=== PATIENT | male | born 1955 | race Caucasian/White ===

== ENCOUNTER 2016-12-18 20:22 | Emergency (ER) ==
[2016-12-18] MEDS ORDERED: SODIUM CHLORIDE 1,000 ML IV STA (20:27)
[2016-12-18 20:31] VITALS: BP 136/86; TEMP 97.6; BMI 28.2
[2016-12-18 20:32] LABS: BASOPHILS # (AUTO) 0.1 K/uL (0-0.2); BASOPHILS % (AUTO) 1.1 % (0.0-3.0); EOSINOPHILS # (AUTO) 0.1 K/ul (0.0-0.7); EOSINOPHILS % (AUTO) 1.6 % (0.0-7.0); HEMATOCRIT 39.9 % (42.0-52.0); HEMOGLOBIN 14.4 g/dl (14.0-18.0); IMMATURE GRANULOCYTE % (AUTO) 0.4 % (0.0-5.0); LYMPHOCYTES # (AUTO) 2.6 K/uL (0.60-3.4); LYMPHOCYTES % (AUTO) 31.3 (10.0-50.0); MEAN CORPUSCULAR HEMOGLOBIN 34.4 pg (27.0-31.0); MEAN CORPUSCULAR HGB CONC 36.1 (31.8-35.4); MEAN CORPUSCULAR VOLUME 95.5 fl (80.0-94.0); MONOCYTES # (AUTO) 0.9 K/uL (0.4-2.0); MONOCYTES % (AUTO) 10.5 (0-10); NEUTROPHILS # (AUTO) 4.5 K/ul (2.0-6.9); NEUTROPHILS % (AUTO) 55.1; PLATELET COUNT 269 10^3/uL (140-440); RED BLOOD COUNT 4.18 10^6/ul (4.70-6.10); WHITE BLOOD COUNT 8.18 K/ul (4.2-10.2)
[2016-12-18] MEDS ORDERED: MORPHINE 2 MG/ML SYRINGE IVP STA (20:41)
[2016-12-18] MEDS ORDERED: ZOFRAN 4 MG/2 ML IVP STA (20:42)
--- NOTE | 2016-12-18 20:54 | CT ---
EXAM: CT of the chest without contrast History: Right-sided chest pain. Technique: Multiplanar CT images through the thorax were obtained without the administration of IV c ontrast Findings: Heart size is within normal limits. Coronary artery calcifications. Great vessels are un remarkable. No pathologically enlarged thoracic lymph nodes. Calcified hilar and mediastinal lymph nodes. No consolidated pneumonia. No pleural fluid and no pneumothorax. No suspicious lung masses o r lung nodules. Within the visualized upper abdomen, status post cholecystectomy. The liver is fatty. Calcified gra nulomas within the spleen. 2 mm left renal calculus. Chronic compression fracture at L1 with about 50% loss of vertebral body height. Old healed right cla vicular fracture. A tiny hiatal hernia. Large amount of fluid and debris is seen opacifying a long segment of esophagu s. Underlying esophageal wall thickening is a possibility. Impression: 1. Abnormal esophagus filled with fluid and debris and there may be underlying esophageal wall thick ening. Recommend further evaluation with upper endoscopy. 2. Tiny hiatal hernia. 3. No acute intrathoracic process. 4. Hepatic steatosis. 5. Nonobstructing left nephrolithiasis. 6. Coronary artery disease
[2016-12-18 21:09] LABS: ALBUMIN 3.9 g/dL (3.4-5.0); ALBUMIN/GLOBULIN RATIO 1.08; BILIRUBIN,TOTAL 0.57 mg/dL (0.00-1.20); BUN/CREATININE RATIO 5.68; CREATINE KINASE MB 4.4 ng/ml (0.0-3.6); CREATININE 0.88 mg/dL (0.60-1.10); TOTAL PROTEIN 7.5 g/dL (5.8-8.1); TROPONIN I 0.012 ng/ml (0.0000-0.4000)
--- NOTE | 2016-12-18 21:20 | ED.PDOC ---
General ED Provider: Dr. JANIE MARIEE-ER Chief Complaint: Shortness of Air Stated Complaint: he was eating and got choked--has right sided chest pain--"i think my lung is collapsed again" Time Seen by Physician: 21:18 Mode of Arrival: Walk-In Information Source: Patient Exam Limitations: No limitations Primary Care Provider: JANIE MARIEE Nursing and Triage Documentation Reviewed and Agree: Yes Cardiovascular Complaint Exam - Chest Pain Complaint/Exam Onset: Gradual Duration: several min Symptoms Are: Still present Timing: Constant Initial Severity: Mild Current Severity: Moderate Location: Reports: Right anterior Character: Reports: Dull, Aching, Tightness, Heaviness, Pressure Aggravating: Reports: None Alleviating: Reports: None Associated Signs and Symptoms: Reports: Cough Related Surgical History: Reports: None History of Healthcare-Acquired Pneumonia: Reports: No AMI/ACS Risk Factors: Reports: Hypertension TAD Risk Factors: Reports: Hypertension Pulmonary Embolism Risk Factors: Reports: None Prior Care for this Complaint: No Recent Stress Test: No Recent Echo/LV Function: No JVD Present: No Subcutaneous Emphysema Present: No Diminshed Breath Sounds: No Reproducible Chest Wall Pain: No Bilateral Pulses Present: Yes Unequal Pulses Noted: No Billet Inspector Consulted: No Differential Diagnoses: Acute NE, ACS, Chest Wall Pain, GI Diseasae, Pulmonary Embolism Quality Indicators For Acute NE or Cardiac Chest Pain: EKG in 10min. Quality Indicator For Non-Traumatic Chest Pain/Syncope: EKG Performed Patient Advised to Stop Smoking: No Review of Systems - Review Of Systems Constitutional: Reports: No symptoms Eyes: Reports: No symptoms Ears, Nose, Mouth, Throat: Reports: No symptoms Respiratory: Reports: Cough Cardiac: Reports: Chest pain GI: Reports: No symptoms : Reports: No symptoms Musculoskeletal: Reports: No symptoms Skin: Reports: No symptoms Neurological: Reports: No symptoms Endocrine: Reports: No symptoms Hematologic/Lymphatic: Reports: No symptoms All Other Systems: Reviewed and Negative Past Medical History - Past Medical History Previously Healthy: No Endocrine: Reports: Unknown Cardiovascular: Reports: Hypertension Respiratory: Reports: Other Hematological: Reports: Unknown Gastrointestinal: Reports: Other Genitourinary: Reports: Other Neuro/Psych: Reports: Other Musculoskeletal: Reports: Unknown Cancer: Reports: Unknown - Surgical History General Surgical History: Reports: Unknown - Family History Family History: Reports: Unknown - Social History Smoking Status: Never smoker Hx Substance Use: No Alcohol Screening: Heavy Lives: With family - Immunizations Tetanus Shot up to Date: Yes Physical Exam - Physical Exam Appearance: Well-appearing, No pain distress, Well-nourished Pain Distress: Moderate Eyes: DC, EOMI, Conjunctiva clear ENT: Ears normal, Nose normal, Oropharynx normal Neck: Supple Respiratory: Airway patent, Breath sounds clear, Breath sounds equal, Respirations nonlabored Cardiovascular: RRR, Pulses normal, No rub, No murmur GI/: Soft Musculoskeletal: Normal strength Skin: Warm Neurological: Sensation intact, Motor intact, Reflexes intact, Cranial nerves intact, Alert, Oriented Psychiatric: Affect appropriate, Mood appropriate, Anxious Interpretation - Radiology Interpretation Radiology Interpretation By: Radiologist Radiology Results: Negative Exam Interpreted: CT Scan - EKG Interpretation Time of EKG #1: 21:21 Rate: Normal Rhythm: Sinus Ectopy: None [place]: NL ST Segment: Normal Critical Care Note - Critical Care Note Total Time (mins): 20 Course - Course Hematology/Chemistry: 12/18/16 20:30 12/18/16 20:30 Orders, Labs, Meds: Lab Review 12/18/16 12/18/16 12/18/16 20:30 20:30 20:30 WBC 8.18 RBC 4.18 L Hgb 14.4 Hct 39.9 L MCV 95.5 H MCH 34.4 H MCHC 36.1 H RDW Coeff of [place] 13.2 Plt Count 269 Immature Gran % (Auto) 0.4 Neut % (Auto) 55.1 Lymph % (Auto) 31.3 [place] % (Auto) 10.5 H Eos % (Auto) 1.6 Baso % (Auto) 1.1 Immature Gran # (Auto) 0.0 Neut # 4.5 Lymph # 2.6 [place] # 0.9 Eos # 0.1 Baso # 0.1 D-Dimer (Manual) 1854.65 Sodium 147 H Potassium 3.0 L Chloride 107 Carbon Dioxide 25 Anion Gap 18.0 BUN 5 L Creatinine 0.88 Estimated GFR (MDRD) 88.00 BUN/Creatinine Ratio 5.68 Glucose 117 H Calcium 9.0 Total Bilirubin 0.57 AST 53 H ALT 32 Alkaline Phosphatase 78 Total Creatine Kinase 392 CK-MB (CK-2) 4.4 H CK-MB (CK-2) % 1.65147 Troponin I 0.0120 Total Protein 7.5 Albumin 3.9 Globulin 3.6 Albumin/Globulin Ratio 1.08 Plasma/Serum Alcohol 249.1 H Orders Category Date Time Status EKG-(ED ONLY) Stat CARDIO 12/18/16 20:26 Completed NPO REMINDER: IMAGING ONCE CARE 12/18/16 21:23 Active IV [ED IV/MEDIPORT/POWERPORT] .ONCE EMERGENCY 12/18/16 20:26 Active CBC W/ AUTO DIFF Stat LAB 12/18/16 20:30 Completed COMPREHENSIVE METABOLIC PANEL Stat LAB 12/18/16 20:30 Completed CREATINE KINASE Stat LAB 12/18/16 20:30 Completed D-DIMER Stat LAB 12/18/16 20:30 Completed ETOH LEVEL [BLOOD ALCOHOL] Stat LAB 12/18/16 20:30 Completed TROPONIN I Stat LAB 12/18/16 20:30 Completed URINALYSIS C & S IF INDICATED Stat LAB 12/18/16 20:26 Uncollected 0.9 % Sodium Chloride [Saline Flush] MEDS 12/18/16 20:26 Ordered 1 syr IVF PRN PRN Morphine Sulfate [Morphine 2 mg/ml Syringe] MEDS 12/18/16 20:41 Discontinued 2 mg IVP ONCE STA Ondansetron HCl/Pf [Zofran 4 mg/2 ml] MEDS 12/18/16 20:42 Discontinued 4 mg IVP ONCE STA Sodium Chloride 0.9% [Sodium Chloride] 1,000 ml MEDS 12/18/16 20:27 Active IV 100 mls/hr CT CHEST PE PROTOCOL Stat RADS 12/18/16 21:[address] CHEST W/O CONTRAST Stat RADS 12/18/16 20:26 Completed Medications Generic Name Dose Route Start Last Admin Trade Name Freq PRN Reason Stop Dose Admin Sodium Chloride 1,000 mls @ 100 mls/hr 12/18/16 20:27 12/18/16 21:17 Sodium Chloride IV 12/19/16 06:26 100 mls/hr .Q10H STA Administration Sodium Chloride 1 syr 12/18/16 20:26 12/18/16 21:17 Saline Flush IVF 1 syr PRN PRN Administration To flush IV Discontinued Medications Generic Name Dose Route Start Last Admin Trade Name Freq PRN Reason Stop Dose Admin Morphine Sulfate 2 mg 12/18/16 20:41 12/18/16 21:17 Morphine 2 Mg/Ml Syringe IVP 12/18/16 20:42 2 mg ONCE STA Administration Ondansetron HCl 4 mg 12/18/16 20:42 12/18/16 21:17 Zofran 4 Mg/2 Ml IVP 12/18/16 20:43 4 mg ONCE STA Administration Vital Signs: Temp Pulse Resp BP Pulse Ox 12/18/16 20:54 79 21 100 12/18/16 20:24 97.6 F 80 20 136/86 99 TROY Risk Score TROY Risk Score: Risk Score Odds of by 30D 0 0.1 (0.1-0.2) 1 0.3 (0.2-0.3) 2 0.4 (0.3-0.5) 3 0.7 (0.6-0.9) 4 1.2 (1.0-1.5) 5 2.2 (1.9-2.6) 6 3.0 (2.5-3.6) 7 4.8 (3.8-6.1) Departure - Departure Time of Disposition: 22:19 Disposition: TSF SHORT-TRM HOSP Discharge Problem: Chest pain Qualifiers: Chest pain type: unspecified Qualified Code(s): R07.9 - Chest pain, unspecified Instructions: Chest Pain (ED) Condition: Good Pt referred to PMD for follow-up: Yes Transfer Form Completed: Yes Disposition Discussed With: Patient, Family
--- NOTE | 2016-12-18 22:08 | CT ---
EXAM: CTA chest for Pulminary Embolism. HISTORY: Right-sided chest pain, elevated D-dimer TECHNIQUE: CTA of the chest was performed from the lung apices to the upper abdomen after 100 ml of Omnipaque IV contrast was administered using PE protocol. 3-D imaging was also provided. Axial scans acquired at 3 mm slice thicknesses. MPR coronal and sagittal sequence as well as 3-D VR T rotational sequence completed FINDINGS: There is no filling defect in the pulmonary arteries to the level of the subsegmental pulm onary arteries. The heart is normal without signs of ventricular strain. There is some ectasia asce nding aorta 3.79 cm compared descending aorta 2.9 cm. There is no pericardial or pleural effusion. No mediastinal adenopathy. There is no lobar consolidations/pneumonia. There is some air within the esophagus and some debris soft tissue attenuation in the distal esophagus. Correlate clinically reg arding GERD. Adrenal glands normal. Surgical clips gallbladder fossa. No biliary ductal dilatation. IMPRESSION: 1. No evidence of pulmonary embolism is seen. 2. Ectasia of the ascending aorta 3.79 cm. 3. No pulmonary consolidation or pneumonia seen. 4. Coronary artery disease/atherosclerotic calcification 5. Air and some debris within the esophagus, correlate clinically regarding GERD.
== END 2016-12-18 23:05 | disposition short-term general hospital (02) ==
LOC: ED 20:22
DX: R07.9 Chest pain, unspecified (principal); R06.02 Shortness of breath; R05 Cough; I10 Essential (primary) hypertension; Z87.19 Personal history of other diseases of the digestive system
CPT/HCPCS: 36415; 80053; 80307; 82550; 82553; 84484; 85025; 85379; 93005; 93010; 96361; 96374; 96375; 99285

== ENCOUNTER 2017-11-13 18:42 | Emergency (ER) ==
[2017-11-13 18:49] VITALS: BP 133/93; TEMP 96.4; BMI 27.1
--- NOTE | 2017-11-13 19:32 | ED.PDOC ---
General ED Provider: Dr. JANIE MARIEE-ER Chief Complaint: Multiple Trauma Stated Complaint: i got kneed in the chest Time Seen by Physician: 18:45 Mode of Arrival: Walk-In Information Source: Patient, Police Exam Limitations: No limitations Primary Care Provider: JANIE MARIEE Nursing and Triage Documentation Reviewed and Agree: Yes Does patient meet sepsis criteria?: No System Inflammatory Response Syndrome: Not Applicable Sepsis Protocol: For patient's 13 years and over: Temp is 96.8 and below OR 101 and greater Pulse >90 BPM Resp >20/minute Acutely Altered Mental Status Are patient's symptoms suggestive of a new infection, such as: -Pneumonia -Skin, Soft Tissue -Endocarditis -UTI -Bone, Joint Infection -Implantable Device -Acute Abdominal Infection -Wound Infection -Meningitis -Blood Stream Catheter Infection -Unknown Trauma/Injury Complaint Exam - Truncal Trauma Complaint/Exam Location of Pain: Reports: Right, Chest Onset: one hour Symptoms Are: Still present Onset of Pain: Reports: Immediate Initial Severity: Mild Current Severity: Moderate Mechanism: Reports: Direct blow Aggravating: Reports: Movement, Deep breathing Alleviating: Reports: Shallow breathing Associated Signs and Symptoms: Denies: Short of air, Chest pain, Cough, Hematuria, Abdominal pain, Fever, Nausea, Vomiting Immobilization Removed Post Exam: No Vertebral Tenderness Present: No Vertebral Deformity Present: No Trachial Deviation Present: No JVD Present: No Crepitus Present: No Diminished Breath Sounds: No Reproducible Pain at: right chest wall Muffled Heart Sounds Present: No Paradoxical Chest Wall Movement Present: No Abdominal Guarding Present: No Abdominal Rigidity Present: No Referred Shoulder Pain (Kehr's Sign) Present: No Skin Findings: Present: Contusion, Tenderness Differential Diagnoses: Chest Wall Contusion Review of Systems - Review Of Systems Constitutional: Reports: No symptoms Eyes: Reports: No symptoms Ears, Nose, Mouth, Throat: Reports: No symptoms Respiratory: Reports: No symptoms Cardiac: Reports: No symptoms GI: Reports: No symptoms : Reports: No symptoms Musculoskeletal: Reports: Muscle pain Skin: Reports: No symptoms Neurological: Reports: No symptoms Endocrine: Reports: No symptoms Hematologic/Lymphatic: Reports: No symptoms All Other Systems: Reviewed and Negative Past Medical History - Past Medical History Previously Healthy: No Endocrine: Reports: Unknown Cardiovascular: Reports: Hypertension Respiratory: Reports: Other Hematological: Reports: Unknown Gastrointestinal: Reports: Other Genitourinary: Reports: Other Neuro/Psych: Reports: Other Musculoskeletal: Reports: Unknown Cancer: Reports: Unknown - Surgical History General Surgical History: Reports: Unknown - Family History Family History: Reports: Unknown - Social History Smoking Status: Never smoker Hx Substance Use: No Alcohol Screening: Heavy Physical Exam - Physical Exam Appearance: Well-appearing, No pain distress, Well-nourished Eyes: DC, EOMI, Conjunctiva clear ENT: Ears normal, Nose normal, Oropharynx normal Neck: Supple Respiratory: Airway patent, Breath sounds clear, Breath sounds equal, Respirations nonlabored Cardiovascular: RRR GI/: Soft, Nontender, No masses, Bowel sounds normal, No Organomegaly Musculoskeletal: Limited ROM Skin: Warm, Dry, Normal color Neurological: Sensation intact, Motor intact, Reflexes intact, Cranial nerves intact, Alert, Oriented Psychiatric: Affect appropriate, Mood appropriate Interpretation - Radiology Interpretation Radiology Interpretation By: Radiologist Radiology Results: Positive Exam Interpreted: CT Scan - EKG Interpretation Time of EKG #1: 19:56 Rate: Tachy Rhythm: Sinus Ectopy: None [place]: NL Interpretation: sinus tachy Critical Care Note - Critical Care Note Total Time (mins): 0 Course - Course Hematology/Chemistry: 11/13/17 18:55 11/13/17 18:55 Orders, Labs, Meds: Lab Review 11/13/17 11/13/17 11/13/17 18:55 18:55 18:55 WBC 10.01 RBC 4.56 L Hgb 15.2 Hct 41.9 L MCV 91.9 MCH 33.3 H MCHC 36.3 H RDW Coeff of [place] 13.4 Plt Count 272 Immature Gran % (Auto) 0.8 Neut % (Auto) 52.0 Lymph % (Auto) 33.4 [place] % (Auto) 10.3 H Eos % (Auto) 2.1 Baso % (Auto) 1.4 Immature Gran # (Auto) 0.1 Neut # (Auto) 5.2 Lymph # (Auto) 3.3 [place] # (Auto) 1.0 Eos # (Auto) 0.2 Baso # (Auto) 0.1 Sodium 140.8 Potassium 2.42 L* Chloride 103.0 Carbon Dioxide 19.6 L Anion Gap 20.62 BUN 6.6 L Creatinine 0.89 Estimated GFR (MDRD) 86.00 BUN/Creatinine Ratio 7.41 Glucose 178.5 H Calcium 8.56 Magnesium 1.68 Total Bilirubin 1.01 AST 154.7 H ALT 55.9 H Alkaline Phosphatase 92.4 Total Creatine Kinase 282.3 H CK-MB (CK-2) 3.710 H CK-MB (CK-2) % 1.3100 Troponin I < 0.012 Total Protein 7.59 Albumin 4.19 Globulin 3.40 Albumin/Globulin Ratio 1.23 Plasma/Serum Alcohol 224.5 H Orders Category Date Time Status ADMIT PATIENT INPATIENT .TO SCU (MONITORED BED) ADMISSION 11/13/17 19:58 Active EKG-(ED ONLY) Stat CARDIO 11/13/17 18:43 Ordered EKG-(IP & OP ONLY) DAILY CARDIO 11/14/17 06:00 Ordered EKG-(IP & OP ONLY) DAILY CARDIO 11/15/17 06:00 Ordered OXYGEN Routine CARDIO 11/13/17 19:59 Ordered ACTIVITY .Up ad Nereyda CARE 11/13/17 19:58 Active INTAKE & OUTPUT Q8HR CARE 11/13/17 19:58 Active TELEMETRY MONITORING TELE CARE 11/13/17 19:58 Active VITAL SIGNS Q4HR CARE 11/13/17 19:58 Active REGULAR DIET DIETARY 11/13/17 Breakfast Ordered Commercial Hvac Service Technician [ED PARKING PATROLLER APPLIED] .ONCE EMERGENCY 11/13/17 19:28 Active IV [ED IV/MEDIPORT/POWERPORT] .ONCE EMERGENCY 11/13/17 19:28 Active CBC W/ AUTO DIFF DAILY@0600 LAB 11/14/17 06:00 Ordered CBC W/ AUTO DIFF DAILY@0600 LAB 11/15/17 06:00 Ordered CBC W/ AUTO DIFF Stat LAB 11/13/17 18:55 Completed COMPREHENSIVE METABOLIC PANEL DAILY@0600 LAB 11/14/17 06:00 Ordered COMPREHENSIVE METABOLIC PANEL DAILY@0600 LAB 11/15/17 06:00 Ordered COMPREHENSIVE METABOLIC PANEL Stat LAB 11/13/17 18:55 Completed CREATINE KINASE Stat LAB 11/13/17 18:55 Completed ETOH LEVEL [BLOOD ALCOHOL] Stat LAB 11/13/17 18:55 Completed MAGNESIUM Stat LAB 11/13/17 18:55 Completed TROPONIN I Stat LAB 11/13/17 18:55 Completed 0.9 % Sodium Chloride [Saline Flush] MEDS 11/13/17 19:28 Ordered 1 syr IVF PRN PRN Hydrocodone Bit/Acetaminophen [[place] 7.5-325] MEDS 11/13/17 20:02 Ordered 1 tab PO Q4HR PRN Ketorolac Tromethamine [Toradol] MEDS 11/13/17 20:01 Ordered 30 mg IVP Q6HR PRN Lorazepam Inj [Ativan] MEDS 11/13/17 20:00 Ordered 2 mg IVP Q4HR PRN Potassium Chloride [K-Dur] MEDS 11/13/17 20:02 Discontinued 40 meq PO ONCE STA Potassium Chloride in 0.9%NaCl [Sodium Chloride 0.9%- MEDS 11/13/17 20:00 Ordered KCl 20 Meq] 1,000 ml Folic Acid 1 mg Vitamin B-1 Inj [Thiamine] 100 mg Mvi, Adult No.1 with Vit K [Infuvite Adult] 10 ml IV 125 mls/hr Vitamin B-1 Inj [Thiamine] MEDS 11/13/17 20:00 Ordered 50 mg IVP DAILY RESUSCITATION STATUS Routine OTHERS 11/13/17 19:[address] CHEST W/O CONTRAST Stat RADS 11/13/17 18:44 Completed Medications Generic Name Dose Route Start Last Admin Trade Name Freq PRN Reason Stop Dose Admin Hydrocodone Bitart/Acetaminophen 1 tab 11/13/17 20:02 [place] 7.5-325 PO Q4HR PRN MODERATE PAIN Albuterol Sulfate 1 vial 11/14/17 00:00 Albuterol 0.042% Neb NEB RTQ6H [place] Folic Acid 1 mg/ Thiamine HCl 1,011.2 mls @ 125 mls/hr 11/13/17 20:00 100 mg/ Multivitamins/Minerals IV 10 ml/ Potassium Chloride/ .Q8H6M [place] Sodium Chloride Ketorolac Tromethamine 30 mg 11/13/17 20:01 Toradol IVP Q6HR PRN MODERATE PAIN Lorazepam 2 mg 11/13/17 20:00 Ativan IVP Q4HR PRN Alcohol Withdrawal Non-Formulary Medication 20 mg 11/14/17 09:00 Lisinopril [Lisinopril] PO DAILY [place] Ondansetron HCl 4 mg 11/13/17 20:05 Zofran 4 Mg/2 Ml IVP Q4HR PRN Nausea / Vomiting Sodium Chloride 1 syr 11/13/17 19:28 Saline Flush IVF PRN PRN To flush IV Thiamine HCl 50 mg 11/13/17 20:00 Thiamine IVP DAILY [place] Discontinued Medications Generic Name Dose Route Start Last Admin Trade Name Sam PRN Reason Stop Dose Admin Potassium Chloride 40 meq 11/13/17 20:02 K-Dur PO 11/13/17 20:03 ONCE STA i tried to convince him to stay but he would not be convinced--i told him he was at risk but decided he would not stay and was going to leave against medical advice--i did note his BA but he is alert and oriented and he is able to make the decision to leave against medical advice. Vital Signs: Temp Pulse Resp BP Pulse Ox 11/13/17 18:43 96.4 F L 109 H 20 133/93 H 95 Departure - Departure Time of Disposition: 19:56 Disposition: AMA Discharge Problem: Hypokalemia Multiple rib fractures Qualifiers: Encounter type: initial encounter Fracture type: closed Laterality: right Qualified Code(s): S22.41XA - Multiple fractures of ribs, right side, initial encounter for closed fracture Condition: Fair Pt referred to PMD for follow-up: Yes IPMP verified?: No Allergies/Adverse Reactions: Allergies No Known Allergies Allergy (Unverified 11/13/17 18:53) Home Medications: Ambulatory Orders Lisinopril 20 mg PO DAILY 11/13/17 Disposition Discussed With: Patient
--- NOTE | 2017-11-13 19:52 | CT ---
Exam: CT of the chest without contrast History: Right-sided chest wall trauma and pain Technique: [address] of the chest without intravenous contrast FINDINGS: The lung windows show no infiltrative opacities, suspicious nodules or masses. Atheroscle rotic calcification of the aorta without aneurysm. There is no pneumothorax or pleural fluid. Nondi splaced right anterolateral fifth, sixth, seventh, eighth rib fractures. No fractures are seen on th e left. Chronic L1 compression deformity. No acute abnormality of the thoracic spine. The sternum is intact. Liver steatosis measuring 16 HU incidentally noted in the upper abdomen. Impression: 1. Right-sided fifth through eighth nondisplaced rib fractures. No lung abnormalities are seen. 2. No acute findings of the chest otherwise.
[2017-11-13] MEDS ORDERED: ATIVAN IVP PRN (20:00)
[2017-11-13] MEDS ORDERED: FOLIC ACID 1 MG, THIAMINE 100 MG, INFUVITE ADULT 10 ML in SODIUM CHLORIDE 0.9%-KCL 20 M... IV SCH (20:00)
[2017-11-13] MEDS ORDERED: THIAMINE IVP SCH (20:00)
[2017-11-13] MEDS ORDERED: TORADOL IVP PRN (20:01)
[2017-11-13] MEDS ORDERED: NORCO 7.5-325 PO PRN (20:02)
[2017-11-13] MEDS ORDERED: ZOFRAN 4 MG/2 ML IVP PRN (20:05)
[2017-11-13] MEDS: K-DUR PO STA (20:12)
[2017-11-14] MEDS ORDERED: ALBUTEROL 0.042% NEB NEB SCH
[2017-11-14] MEDS ORDERED: NON-FORMULARY MEDICATION (Lisinopril [Lisinopril] 20 MG) PO SCH (09:00)
== END 2017-11-13 20:15 | disposition left against medical advice (07) ==
LOC: ED 18:42 → UNDOADMIN 20:03 → SCU 20:03 → ED 20:15
DX: S22.41XA Multiple fractures of ribs, right side, initial encounter for closed fracture (principal); E87.6 Hypokalemia; W50.0XXA Accidental hit or strike by another person, initial encounter
CPT/HCPCS: 36415; 80053; 80307; 82550; 82553; 83735; 84484; 85025; 93005; 93010; 99284

== ENCOUNTER 2018-05-08 17:55 | Outpatient (CLI) | END 2018-05-08 18:21 | disposition short-term general hospital (02) | LOC: AMBL 17:55 | PROVIDERS: ATTEND Emergency Medicine | DX: R45.851 Suicidal ideations (principal); R45.6 Violent behavior ==

== ENCOUNTER 2021-10-19 18:02 | Inpatient (IN) ==
[2021-10-19] MEDS ORDERED: TYLENOL PO PRN (19:26)
[2021-10-19] MEDS ORDERED: NITROSTAT SL PRN (19:26)
[2021-10-19] MEDS ORDERED: ATROPINE SULFATE PFS IVP PRN (19:26)
[2021-10-19 19:46] LABS: BASOPHILS # (AUTO) 0.1 K/uL (0-0.2); EOSINOPHILS # (AUTO) 0.4 K/ul (0.0-0.7); EOSINOPHILS % (AUTO) 4.7 % (0.0-7.0); HEMATOCRIT 33.9 % (42.0-52.0); HEMOGLOBIN 11.2 g/dl (14.0-18.0); IMMATURE GRANULOCYTE % (AUTO) 0.4 % (0.0-5.0); LYMPHOCYTES % (AUTO) 24.4 (10.0-50.0); MEAN CORPUSCULAR HEMOGLOBIN 29.3 pg (27.0-31.0); MEAN CORPUSCULAR VOLUME 88.7 fl (80.0-94.0); MONOCYTES % (AUTO) 12.1 (0-10); NEUTROPHILS # (AUTO) 4.7 K/ul (2.0-6.9); NEUTROPHILS % (AUTO) 57.4 % (42.2-75.2); PLATELET COUNT 276 10^3/uL (140-440); RDW COEFFICIENT OF VARIATION 14.1 % (11.6-14.8); RED BLOOD COUNT 3.82 10^6/ul (4.70-6.10)
[2021-10-19] MEDS ORDERED: BENTYL PO PRN (19:51)
[2021-10-19] MEDS ORDERED: DYAZIDE PO PRN (19:51)
[2021-10-19] MEDS ORDERED: IMODIUM PO PRN (19:51)
[2021-10-19 19:57] LABS: ALANINE AMINOTRANSFERASE 15.9 U/L (0-50); ALBUMIN 3.88 g/dL (3.5-5.0); ASPARTATE AMINO TRANSFERASE 25.7 U/L (17-59); BILIRUBIN,TOTAL 0.48 mg/dL (0.2-1.3); BLOOD UREA NITROGEN 9.9 mg/dL (9-20); CALCIUM 8.52 mg/dL (8.4-10.2); CARBON DIOXIDE 17.9 mmol/L (22-30.0); CHLORIDE 106.7 mmol/L (98-107); CREATINE KINASE 223.3 U/L (55-170); CREATININE 1.28 mg/dL (0.60-1.10); GLUCOSE 168.6 mg/dL (74-106); SODIUM 138.3 mmol/L (134.5-145); TOTAL PROTEIN 7.41 g/dL (6.3-8.2)
[2021-10-19 20:16] LABS: POTASSIUM 2.69 mmol/L (3.5-5.1); TROPONIN I < 0.012 ng/ml (0.0000-0.120)
[2021-10-19 20:22] VITALS: BMI 27.6
[2021-10-19] MEDS: PRILOSEC PO SCH (20:44)
[2021-10-19] MEDS: ULTRAM PO SCH (20:44)
[2021-10-19] MEDS: SODIUM CHLORIDE 0.9%-KCL 20 MEQ 1,000 ML IV SCH (20:51)
[2021-10-19] MEDS ORDERED: K-DUR PO SCH (21:00)
[2021-10-19] MEDS ORDERED: NEURONTIN PO SCH (21:00)
[2021-10-19] MEDS ORDERED: COREG PO SCH (21:00)
--- NOTE | 2021-10-19 21:12 | DI ---
EXAM: CHEST FRONTAL AND LATERAL VIEWS HISTORY: Acute hypokalemia, generalized weakness and cough COMPARISON: 08/28/2020 FINDINGS: Heart size upper limit normal. Ectasia of the thoracic aorta with atherosclerotic disease . There is diffuse, chronic appearing interstitial accentuation. No acute infiltrates are seen. No vascular congestion. There is no consolidation, visible pleural fluid or pneumothorax. Bones revea l no acute abnormality. IMPRESSION: No acute cardiopulmonary process.
[2021-10-20 04:16] LABS: BASOPHILS # (AUTO) 0.1 K/uL (0-0.2); EOSINOPHILS # (AUTO) 0.4 K/ul (0.0-0.7); EOSINOPHILS % (AUTO) 5.1 % (0.0-7.0); HEMATOCRIT 33.9 % (42.0-52.0); HEMOGLOBIN 10.8 g/dl (14.0-18.0); IMMATURE GRANULOCYTE % (AUTO) 0.4 % (0.0-5.0); LYMPHOCYTES # (AUTO) 2.1 K/uL (0.60-3.4); LYMPHOCYTES % (AUTO) 26.6 (10.0-50.0); MEAN CORPUSCULAR HEMOGLOBIN 29.5 pg (27.0-31.0); MEAN CORPUSCULAR HGB CONC 31.9 (31.8-35.4); MEAN CORPUSCULAR VOLUME 92.6 fl (80.0-94.0); MONOCYTES # (AUTO) 1.1 K/uL (0.4-2.0); MONOCYTES % (AUTO) 13.3 (0-10); NEUTROPHILS # (AUTO) 4.3 K/ul (2.0-6.9); NEUTROPHILS % (AUTO) 53.6 % (42.2-75.2); PLATELET COUNT 249 10^3/uL (140-440); RDW COEFFICIENT OF VARIATION 14.3 % (11.6-14.8); RED BLOOD COUNT 3.66 10^6/ul (4.70-6.10); WHITE BLOOD COUNT 7.97 K/ul (4.2-10.2)
[2021-10-20 04:27] LABS: ALANINE AMINOTRANSFERASE 12.6 U/L (0-50); ALBUMIN 3.42 g/dL (3.5-5.0); ALKALINE PHOSPHATASE 95.7 U/L (56-119); ASPARTATE AMINO TRANSFERASE 24.4 U/L (17-59); BILIRUBIN,TOTAL 0.48 mg/dL (0.2-1.3); BLOOD UREA NITROGEN 12.3 mg/dL (9-20); CALCIUM 8.03 mg/dL (8.4-10.2); CARBON DIOXIDE 24.7 mmol/L (22-30.0); CREATINE KINASE 165.1 U/L (55-170); CREATININE 1.21 mg/dL (0.60-1.10); GLUCOSE 132.6 mg/dL (74-106); SODIUM 139.8 mmol/L (134.5-145); TOTAL PROTEIN 6.91 g/dL (6.3-8.2)
[2021-10-20 04:40] LABS: TROPONIN I < 0.012 ng/ml (0.0000-0.120)
[2021-10-20] MEDS ORDERED: GLUCOPHAGE PO SCH (09:00)
[2021-10-20] MEDS: K-DUR PO SCH ×4 (09:17→21:18)
[2021-10-20] MEDS: COREG PO SCH ×2 (09:17→18:15)
[2021-10-20] MEDS: ULTRAM PO SCH ×2 (09:17→21:18)
[2021-10-20] MEDS: FERROUS SULFATE PO SCH (09:17)
[2021-10-20] MEDS: SODIUM CHLORIDE 0.9%-KCL 20 MEQ 1,000 ML IV SCH ×2 (09:21→22:05)
--- NOTE | 2021-10-20 09:30 | HP ---
DATE OF SERVICE: 10/19/21 REASON FOR HOSPITALIZATION/HISTORY OF PRESENT ILLNESS: Potassium 2.8 today, feeling weak. PAST MEDICAL HISTORY: Crohn's Hypertension CAD Dyslipidemia Anemia Hypokalemia Osteoarthritis, hips DJD spine Hypertension Neuropathy Positive marijuana Leg edema Hyperglycemia GERD See office note PAST SURGICAL HISTORY: Stomach surgery REVIEW OF SYSTEMS: CONSTITUTIONAL: No fever, Fatigue. HEENT: No sinus drainage, no sore throat. RESPIRATORY: No cough, no congestion. CARDIOVASCULAR: No atypical chest pain for coronary artery disease. No angina, CHF symptoms, palpitations or shortness of breath. GASTROINTESTINAL: No melena or abdominal pain. No GERD. GENITOURINARY: No hematuria, no prostatism, no polyuria. TRAIN ELECTRONIC TECHNICIAN: No blackout, no dizziness, no headache, no double vision. MUSCULOSKELETAL: No osteoarthritis pain, no joint swelling. ENDOCRINE: No weight loss, no weight gain. SKIN: Not dry, no rash. PSYCHIATRIC: Not anxious, no depression, no suicidal thoughts, no homicidal thoughts. SOCIAL HISTORY: Marital Status: . Alcohol Usage: Yes; vodka daily. Tobacco Usage: No. Drug usage history:Smoker, pot since . FAMILY HISTORY: Father kidney failure Mother breast cancer Brother one liver, one alive healthy Sister one healthy MEDICATIONS: Imodium 2mg 1-2 PRN Gabapentin 300mg HS Iron Q daily (over the counter) K-tab 20meq daily Tramadol 50mg BID Omeprazole 20mg HS Dyazide three times weekly PRN Bentyl 10mg TID PRN Nitroglycerin PRN Coreg 12.5mg PO BID Baby Aspirin 81mg PO Metformin 250mg daily ALLERGIES: No known allergies PHYSICAL EXAMINATION: V/S: pulse 97, blood pressure 144/80, temperature 98.2, oxygen saturation 97%. GENERAL APPEARANCE: Oriented times three. HEENT: Normal. NECK: No JVP, no bruits. RESPIRATORY: Decreased breath sounds. CARDIOVASCULAR: S1, S2, no S3, no murmur. No cyanosis, clubbing. No ascites. GI/ABDOMEN: No tenderness. Bowel sounds are active. EXTREMITIES: edema, pulses +1, equal. TRAIN ELECTRONIC TECHNICIAN: Deep tendon reflexes, sensory, motor and gait all normal. RECTAL: 2019 /PELVIC/PROSTATE:6/21 (0.8) . ASSESSMENT: 1. Acute hypokalemia 2. Generalized weakness 3. Dyslipidemia 4. Anemia 5. History of hypokalemia 6. Left femoral head-possible necrosis 7. Osteoarthritis hips 8. DJD spine, lumbar 9. Right incomplete reducible inguinal hernia 10. History of pancreatitis with POLLO 08/26 11. Anemia 12. Hypertension 13. Hyperglycemia-history of diabetes mellitus type II 14. Dependent leg edema left more than right 15. Positive marijuana 16. Crohn's 17. Neuropathy 18. Dyslipidemia 19. Echo 03/29 20. GERD 21. History of alcohol abuse 22. Noncompliance with medications, lifestyle and followup. PLAN: 1. The patient to be tested in drive bert coming this afternoon 2. Routine telemetry orders 3. CBC and CMP now and daily 4. Normal saline IV plus 20meq at 83cc an hour 5. 20meq Potassium QID PO 6. Continue home medications 7. Chest x-ray 8. U/A 9. Regular diet 10. Hold Metformin TIME SPENT: More than 70 minutes. MTDD
[2021-10-20 09:41] LABS: BILIRUBIN,URINE Negative (NEGATIVE); CLARITY,URINE Slightly (CLEAR); COLOR,URINE Yellow (YELLOW); GLUCOSE, URINE (UA) Negative (NEGATIVE); KETONES,URINE Negative (NEGATIVE); LEUKOCYTE ESTERASE ,URINE 1+ (NEGATIVE); NITRITE,URINE Positive (NEGATIVE); PROTEIN,URINE Negative (NEGATIVE); URINE, BLOOD 2+ (NEGATIVE); UROBILINOGEN,URINE 0.2 (0.2)
[2021-10-20 09:50] LABS: SQUAMOUS EPITHELIAL CELL,UR NOT PRESENT (0-5)
[2021-10-20 09:52] LABS: BACTERIA,URINE 3+ (NOT PRESENT)
[2021-10-20] MEDS: NEURONTIN PO SCH (13:10)
[2021-10-20] MEDS: ROCEPHIN 1 GM/50 ML D5W 1 GM/50 ML BAG IV SCH (13:10)
[2021-10-20] MEDS: PRILOSEC PO SCH (21:18)
[2021-10-21 05:00] LABS: BASOPHILS # (AUTO) 0.1 K/uL (0-0.2); BASOPHILS % (AUTO) 0.8 % (0.0-3.0); EOSINOPHILS # (AUTO) 0.4 K/ul (0.0-0.7); EOSINOPHILS % (AUTO) 4.3 % (0.0-7.0); HEMATOCRIT 35.9 % (42.0-52.0); HEMOGLOBIN 11.7 g/dl (14.0-18.0); IMMATURE GRANULOCYTE % (AUTO) 0.3 % (0.0-5.0); LYMPHOCYTES # (AUTO) 1.7 K/uL (0.60-3.4); LYMPHOCYTES % (AUTO) 19.5 (10.0-50.0); MEAN CORPUSCULAR HEMOGLOBIN 29.4 pg (27.0-31.0); MEAN CORPUSCULAR HGB CONC 32.6 (31.8-35.4); MEAN CORPUSCULAR VOLUME 90.2 fl (80.0-94.0); MONOCYTES # (AUTO) 0.8 K/uL (0.4-2.0); MONOCYTES % (AUTO) 9.4 (0-10); NEUTROPHILS # (AUTO) 5.7 K/ul (2.0-6.9); NEUTROPHILS % (AUTO) 65.7 % (42.2-75.2); PLATELET COUNT 255 10^3/uL (140-440); RDW COEFFICIENT OF VARIATION 14.3 % (11.6-14.8); RED BLOOD COUNT 3.98 10^6/ul (4.70-6.10); WHITE BLOOD COUNT 8.62 K/ul (4.2-10.2)
[2021-10-21 05:13] LABS: ALBUMIN 3.49 g/dL (3.5-5.0); ALKALINE PHOSPHATASE 105.4 U/L (56-119); ASPARTATE AMINO TRANSFERASE 24.1 U/L (17-59); BILIRUBIN,TOTAL 0.42 mg/dL (0.2-1.3); BLOOD UREA NITROGEN 9.8 mg/dL (9-20); CALCIUM 8.56 mg/dL (8.4-10.2); CARBON DIOXIDE 21.2 mmol/L (22-30.0); CHLORIDE 111.6 mmol/L (98-107); CREATININE 1.06 mg/dL (0.60-1.10); GLUCOSE 129.7 mg/dL (74-106); POTASSIUM 3.48 mmol/L (3.5-5.1); SODIUM 140.8 mmol/L (134.5-145); TOTAL PROTEIN 7.15 g/dL (6.3-8.2)
[2021-10-21] MEDS: NEURONTIN PO SCH (09:10)
[2021-10-21] MEDS: COREG PO SCH (09:10)
[2021-10-21] MEDS: FERROUS SULFATE PO SCH (09:10)
[2021-10-21] MEDS: K-DUR PO SCH ×2 (09:11→12:37)
[2021-10-21] MEDS: ULTRAM PO SCH (09:11)
--- NOTE | 2021-10-21 09:39 | DS ---
DATE OF SERVICE: 10/21/21 FINAL DIAGNOSIS: 1. Acute hypokalemia 2. UTI, gram negative rods 3. Noncompliance with diet, lifestyle, medications and followup DISCHARGE INSTRUCTIONS: Discharge home. Continue medications as listed per nursing reconciliation. Followup appointment with Dr. Razo's office on MondayOctober 29 at 11:45am. MEDICATIONS AT DISCHARGE: Omeprazole 20mg Po bedtime Tramadol 50mg PO BID K-tab 20meq PO daily Bentyl 10mg PO TID PRN Dyazide 37.5-25mg one cap PO three times per week PRN Ferrous sulfate 325mg PO daily Imodium 2mg PO Q 4 hours PRN Gabapentin 300mg PO bedtime Metformin 250mg PO daily Coreg 12.5mg PO BID Nitroglycerin 0.4mg sublingual Q 5-15 minute PRN chest pain NEW PRESCRIPTIONS: Cefdinir 300mg PO BID DIET INSTRUCTIONS: Continue regular diet at home. ACTIVITY: Gradually resume activity as tolerated HOSPITAL COURSE: 66 year old white male who was a direct admit from the office. Labs were draw and showed Potassium 2.6. He has a history of Hypokalemia but also long history of noncompliance with medications and followup. he was agreeable for admission and placed on routine telemetry orders. He is stable from cardiac stand point. He was initiated on IV Potassium along with PO Potassium. Potassium is up to 3.48 today. Urine was positive for gram negative rods. He was started on Rocephin yesterday. He is diabetic. He is adamant about going home today. States he will not stay. We will send him home on Omnicef 300mg BID for 10 days along with Potassium 20meq daily. Should get 100meq prior to discharge today. We will followup in the office next week. TIME SPENT: More than 60 minutes. ADDENDUM: DIAGNOSIS: UTI urine grew e-coli. He was treated with antibiotics and discharged on antibiotics for UTI. [facility] SYSTEMEstela
--- NOTE | 2021-10-21 09:41 | PCM.PROG ---
Attending Provider: ATTENDING PROVIDER: Dr. CRISPIN HICKEY This patient is seen with Zenia Cifuentes, Nurse Practitioner. DATE OF SERVICE: 10/21/21 SUBJECTIVE: This 66 year old /WHITE M was hospitalized 10/19/21. Potassium is up to 3.48 today, feeling better. He is Adamant about going home. He is agreeable to stay till this evening. Will continue IV and PO Potassium today. Instruction to take Potassium at homes, states he has Potassium but doesn't take it. He has a long history of noncompliance. REVIEW OF SYSTEMS: CONSTITUTIONAL: No night sweats. No fatigue, malaise, lethargy. No fever or chills. Weakness. HEENT: Eyes: No visual changes. No eye pain. No eye discharge. ENT: No runny nose. No epistaxis. No sinus pain. No odynophagia. No congestion. RESPIRATORY: No cough, no congestion. No hemoptysis. No shortness of breath. CARDIOVASCULAR: No angina symptoms. No CHF symptoms. No atypical chest pain for CAD. No palpitations. No orthopnea.. GASTROINTESTINAL: No abdominal pain. No nausea or vomiting. No diarrhea or constipation. No hematemesis. No hematochezia. GENITOURINARY: No urgency. No frequency. No dysuria. No hematuria. No obstructive symptoms. No discharge. No pain. No significant abnormal bleeding. MUSCULOSKELETAL: No musculoskeletal pain; Joint pain. NEUROLOGICAL: Awake, alert, oriented to time, place and person. No headache. No neck pain. No syncope. No seizures. No dizziness. PSYCHIATRIC: Not anxious. No depression. No suicidal thoughts. No homicidal thoughts. SKIN: No rash. No lesions. No wounds. ENDOCRINE: No unexplained weight loss. No weight gain. HEMATOLOGIC/LYMPHATIC: No anemia. No purpura. No petechiae. No prolonged or excessive bleeding. No palpable lymph nodes. PHYSICAL EXAMINATION: GENERAL: The patient is awake, alert and oriented, lying in bed in no distress. VITAL SIGNS: Temperature 97.7 F, Pulse 60, Respiratory Rate 16, BP 148/81, Pulse Ox 94% HEENT: Head normocephalic, atraumatic. Eyes: Extraocular muscles are intact. Pupils are equal, round and reactive to light and accommodation. Ears: No lesions. Nose appeared normal. Throat: No exudate or erythema. NECK: Supple. No JVD, no carotid bruit. No lymphadenopathy or thyromegaly. LUNGS: Diminished breath sounds. Clear to auscultation. Percussion note normal. Chest symmetrical. HEART: S1, S2, no S3. No murmurs. No cyanosis or clubbing. No ascites. Pulses: Dorsalis pedis and posterior tibial pulses +1 to +2 both sides. ABDOMEN: Soft. Non-tender. Bowel sounds active. No CVA tenderness. No mass felt. EXTREMITIES: Left trace pedal edema. Full range of motion of all extremities, equal. NEUROLOGIC: No focal deficit. Cranial nerves II through XII are grossly intact. No headache. No double vision. SKIN: Not dry. Intact. Turgor-normal. LYMPHATIC: No palpable lymph nodes/no lymphedema. MUSCULOSKELETAL: Normal joints with no swelling. Muscle tone is normal. LAB REVIEW: 10/21/21 04:42 10/21/21 04:42 10/21/21 04:42: Sodium 140.8, Potassium 3.48 L, Chloride 111.6 H, Carbon Dioxide 21.2 L, Anion Gap 11.48, BUN 9.8, Creatinine 1.06, Estimated GFR (MDRD) 70.00, BUN/Creatinine Ratio 9.24, Glucose 129.7 H, Calcium 8.56, Total Bilirubin 0.42, AST 24.1, ALT 14.0, Alkaline Phosphatase 105.4, Total Protein 7.15, Albumin 3.49 L, Globulin 3.66, Albumin/Globulin Ratio 0.95 10/21/21 04:42: WBC 8.62, RBC 3.98 L, Hgb 11.7 L, Hct 35.9 L, MCV 90.2, MCH 29.4, MCHC 32.6, RDW Coeff of Cuauhtemoc 14.3, Plt Count 255, Immature Gran % (Auto) 0.3, Neut % (Auto) 65.7, Lymph % (Auto) 19.5, Dickson % (Auto) 9.4, Eos % (Auto) 4.3, Baso % (Auto) 0.8, Neut # (Auto) 5.7, Lymph # (Auto) 1.7, Dickson # (Auto) 0.8, Eos # (Auto) 0.4, Baso # (Auto) 0.1, Immature Gran # (Auto) 0.0 10/20/21 09:28: Urine Color Yellow, Urine Clarity Slightly, Urine pH 6.0, Ur Specific Holland 1.015, Urine Protein Negative, Urine Glucose (UA) Negative, Urine Ketones Negative, Urine Blood 2+ H, Urine Nitrite Positive H, Urine Bilirubin Negative, Urine Urobilinogen 0.2, Ur Leukocyte Esterase 1+ H, Urine Microscopic RBC 5-10, Urine Microscopic WBC 5-10, Ur Squamous Epith Cells Not present, Urine Bacteria 3+ ASSESSMENT: Please see below. 1. Acute hypokalemia 2. UTI, gram negative rods 3. Noncompliance with diet, lifestyle, medications and followup PLAN: 1. 2D echo before discharge 2. Discharge home this afternoon 3. PO Potassium 20meq 4. Omnicef 300mg BID for 10 days 5. Discussed importance of taking medications as prescribed. Plan and coordination of the patient's care discussed in the presence of Tube Cleaning Operator and nurse. SCRIBED BY: Megan PACKist scribed while in presence of service performed by Dr. Hickey/Zenia Cifuentes APRN on 10/21/21 ([id number])
[2021-10-21] MEDS: SODIUM CHLORIDE 0.9%-KCL 20 MEQ 1,000 ML IV SCH (09:58)
[2021-10-21] MEDS: ROCEPHIN 1 GM/50 ML D5W 1 GM/50 ML BAG IV SCH (09:58)
[2021-10-21 15:00] VITALS: BP 154/83; TEMP 97.5
[2021-10-21] MEDS ORDERED: K-DUR PO ONE (16:00)
--- NOTE | 2021-10-22 09:36 | PN ---
DATE OF SERVICE: 10/20/21 SUBJECTIVE: 66 year old white male hospitalized with hypokalemia. The patient's Potassium was 2.8 with generalized weakness. The patient says that he is feeling a lot better, still kind of weak. REVIEW OF SYSTEMS: CONSTITUTIONAL: No night sweats. No fatigue, malaise, lethargy. No fever or chills. HEENT: Eyes: No visual changes. No eye pain. No eye discharge. ENT: No runny nose. No epistaxis. No sinus pain. No sore throat. No odynophagia. No congestion. RESPIRATORY: No cough, no congestion. No hemoptysis. No shortness of breath. CARDIOVASCULAR: No angina symptoms. No CHF symptoms. No atypical chest pain for CAD. No palpitations. No PND. No orthopnea. GASTROINTESTINAL: No abdominal pain. No nausea or vomiting. No diarrhea or constipation. No hematemesis. No hematochezia. GENITOURINARY: No urgency. No frequency. No dysuria. No hematuria. No obstructive symptoms. No discharge. No pain. No significant abnormal bleeding. MUSCULOSKELETAL: No musculoskeletal pain; no joint swelling. NEUROLOGICAL: No headache. No neck pain. No syncope. No seizures. No dizziness. PSYCHIATRIC: Not anxious. No depression. No suicidal thoughts. No homicidal thoughts. SKIN: No rash. No lesions. No wounds. ENDOCRINE: No unexplained weight loss. No weight gain. HEMATOLOGIC/LYMPHATIC: No anemia. No purpura. No petechiae. No prolonged or excessive bleeding. No palpable lymph nodes. PHYSICAL EXAMINATION: VITAL SIGNS: Temperature 96.7, pulse 53, respiratory rate 16, blood pressure 137/79 and pulse ox 100% on room air. HEENT: Head normocephalic, atraumatic. Eyes: Extraocular muscles are intact. Pupils are equal, round and reactive to light and accommodation. Ears: No lesions. Nose appeared normal. Throat: No exudate or erythema. NECK: Supple. No JVD, no carotid bruit. No lymphadenopathy or thyromegaly. LUNGS: Decreased breath sounds but clear to auscultation. Percussion note normal. Chest symmetrical. HEART: S1, S2, no S3. No murmurs. No cyanosis or clubbing. No ascites. Pulses: Dorsalis pedis and posterior tibial pulses +1 to +2 bilaterally. ABDOMEN: Soft. Nontender. Bowel sounds active. No CVA tenderness. No mass felt. EXTREMITIES: No edema. Full range of motion of all extremities, equal. NEUROLOGIC: No focal deficit. Cranial nerves II through XII are grossly intact. No headache. No double vision. SKIN: Not dry. Intact. Turgor - normal. LYMPHATIC: No palpable lymph nodes/no lymphedema. MUSCULOSKELETAL: Normal joints with no swelling. Muscle tone is normal. LABS: Hgb 10.8, hct 33, WBC 7,900 normal differential, creatinine 1.2, BUN 12, potassium 2.69 and glucose 132. ASSESSMENT: 1. Hypokalemia seems to be resolving 2. Abnormal U/A with UTI going to be treated with Rocephin. Cultures are pending 3. Dehydration 4. Chronic anemia 5. Diabetes Mellitus 6. Hypertension PLAN: 1. Continue to treat patient with Potassium supplements 2. Rocephin 3. Echocardiogram to evaluate vascular status and LV function with abnormal EKG 4. The patient is noncompliant of all aspects of medical care. 5. Strongly advised to take his medication on regular basis 6. All the labs discussed with the patient. TIME SPENT: More than 30 minutes. Plan and coordination of the patient's care discussed in the presence of nurse. JUAN
--- NOTE | 2021-10-22 13:50 | ECHO2D ---
Date of Exam: 10/21/2021 Ordering Physician: DR. CRISPIN HICKEY Room #: 109 Reason for Echo: SOB, CAD M-Mode Normal Adult Results LV Dimensions Normal Adult Results AoV Opening excursions >1.6 >1.6 LVEDD-base- 3.5-5.8 5.3 Ao root dimensions 2.0-3.7 4.0 LVESD-base- 3.1-4.6 L. Atrium dimensions 1.9-3.8 4.7 Post. Wall thickness 0.8-1.1 1.3 IV septum (thickness) 0.7-1.2 1.4 Post. Wall excursion 0.72-1.3 NORMAL Septal motion NORMAL Systolic motion R. Ventricular cavity 1.5-2.0 NORMAL LVEF 60% 59% Paradoxical septal wall motion NORMAL 2-D : ENLARGED LEFT ATRIAL CAVITY--DILATED AORTIC ROOT--NORMAL LEFT VENTRICLE SIZE, NORMAL LEFT VENTRICLE CONTRACTILITY--NORMAL VALVES--NO EFFUSION, NO THROMBUS M-MODE: MV: NORMAL AV: NORMAL TV: NORMAL PV: CHAMBER SIZE: DILATED AORTIC ROOT/ ENLARGED LEFT ATRIAL CAVITY WALL MOTION: NORMAL PERICARDIUM: NORMAL INTERPRETATION: 1. LEFT VENTRICLE HYPERTROPHY WITH ENLARGED LEFT ATRIAL CAVITY 2. DILATED AORTIC ROOT 3. NORMAL VALVES 4. NORMAL LEFT VENTRICLE CONTRACTILITY MTDD
--- NOTE | 2021-10-26 10:02 | PN ---
DATE OF SERVICE: 10/21/21 SUBJECTIVE: 66 year old white male hospitalized with hypokalemia. His condition has improved. His hypokalemia has resolved. His UTI seems to be under control. He is going to be discharged home. His echo findings, LVH with enlarged LA cavity, ejection fraction is normal. The patient was seen and examined with the Nurse Practitioner. ADDENDUM: DIAGNOSIS: UTI urine grew e-coli. He was treated with antibiotics and discharged on antibiotics for UTI. TIME SPENT: More than 30 minutes. Plan and coordination of the patient's care discussed in the presence of nurse. JUAN
== END 2021-10-21 16:14 | disposition home or self-care (01) | DRG 640 ==
LOC: MEDSURG A 18:02
PROVIDERS: ADMIT Internal Medicine; ATTEND Internal Medicine

== ENCOUNTER 2023-11-30 19:49 | Observation (INO) ==
--- NOTE | 2023-11-30 19:57 | ED.PDOC ---
General ED Provider: Dr. BRENDA IBRAHIM MD Chief Complaint: Non-specific Complaint Stated Complaint: This 68 y/o male sent over from Dr. Razo's office with low potassium found on labs. he does not know how low it was, but they told him "critical" and for him to come into ER immediately, he is a bit weak with some muscle spasms, and his heart rate is notably high. Time Seen by Provider: 11/30/23 20:40 Mode of Arrival: Walk-In Information Source: Patient Exam Limitations: No limitations Primary Care Provider: CRISPIN RAZO MD Nursing and Triage Documentation Reviewed and Agree: Yes Does Patient Take Opioids?: No Is Patient Opioid Naive?: No What is Opioid Naive?: *Opioid Naive implies the patient is not already taking opioids or not chronically receiving opioids on a daily basis. *PRN dosing is not "usually" associated with tolerance. *Patients are at higher risk of over-sedation and aspiration. Is Patient Opioid Tolerant?: No What is Opioid Tolerant?: *Opioid Tolerance implies less than the expected response to an opioid. *Acquired tolerance is defined by the patient taking 60mg of oral morphine daily (or equianalgesic dose of another opioid) for 1 week or more. *Often associated with chronic pain. *May take more than usual dose to achieve desired pain control. Review of Systems Review Of Systems Constitutional: Reports No symptoms Eyes: Reports No symptoms Ears, Nose, Mouth, Throat: Reports No symptoms Respiratory: Reports No symptoms Cardiac: Reports No symptoms GI: Reports No symptoms : Reports No symptoms Musculoskeletal: Reports Muscle pain Skin: Reports No symptoms Neurological: Reports No symptoms Endocrine: Reports No symptoms Hematologic/Lymphatic: Reports No symptoms All Other Systems: Reviewed and Negative [facility] Medical History Left shoulder pain has had prior surgery by Dr. Mccallum M25.512 - Pain in left shoulder (ICD-10) Pancreatitis with POLLO 08/26 K85.90 - Acute pancreatitis without necrosis or infection, unspecified (ICD- 10) Degenerative joint disease (DJD) of lumbar spine M47.816 - Spondylosis without myelopathy or radiculopathy, lumbar region (ICD-10) DJD (degenerative joint disease) of thoracic spine M47.814 - Spondylosis without myelopathy or radiculopathy, thoracic region (ICD-10) Hx of sepsis Z86.19 - Personal history of other infectious and parasitic diseases (ICD- 10) Family History Mother Breast cancer FATHER Kidney disease Social History Smoking and tobacco status: Never smoker Alcohol intake: current Alcohol intake frequency: 3 or more drinks per day Alcohol type: beer and hard liquor Substance use type: marijuana Special jeanine needs: No Agree to transfusion: Yes Adopted: No Caregiver/support person: No Foster care: No Household members: none Housing: house Marital status: D Lives independently: Yes Daycare: no daycare Number of children: 1 service: No Current occupational status: retired Pets and animals: Yes History of recent travel: No Do you think of yourself as: straight/heterosexual Current gender identity: male Seatbelt use: sometimes Drives intoxicated or rides with intoxicated tractor driver: No Water heater temperature set < 120 degrees: Yes Working smoke detector in home: No Fire extinguisher in home: Yes Carbon monoxide detector in home: No Firearms in home: No Surgical History S/P foot surgery, left Dr. Mcgregor design technology teacher Wilberto complete reconstruction 2.5 hour surgery special shoe present Z98.890 - Other specified postprocedural states (ICD-10) Physical Exam Physical Exam Appearance: Reports Not Applicable (appears weak) Ill-appearing: Mild Pain Distress: None Eyes: Reports DC and EOMI ENT: Reports Ears normal and Nose normal Neck: Supple Respiratory: Reports Airway patent, Breath sounds clear and Breath sounds equal Cardiovascular: Reports RRR and Tachycardia GI/: Reports Soft, Nontender and No masses Musculoskeletal: Reports Normal strength and No edema Skin: Reports Warm and Dry Neurological: Reports Sensation intact, Motor intact, Reflexes intact, Cranial nerves intact, Alert and Oriented Psychiatric: Reports Affect appropriate Course Course 11/30/23 20:36 12/01/23 00:55 Orders, Labs, Meds: Lab Review 11/30/23 11/30/23 12/01/23 20:36 23:15 00:55 WBC 12.05 H RBC 3.79 L Hgb 11.1 L Hct 32.7 L MCV 86.3 MCH 29.3 MCHC 33.9 RDW Coeff of Cuauhtemoc 14.9 H Plt Count 321 Immature Gran % (Auto) 0.9 Neut % (Auto) 85.3 H Lymph % (Auto) 6.4 L Angelina % (Auto) 7.1 Eos % (Auto) 0.1 Baso % (Auto) 0.2 Neut # (Auto) 10.3 H Lymph # (Auto) 0.8 Angelina # (Auto) 0.9 Eos # (Auto) 0.0 Baso # (Auto) 0.0 Immature Gran # (Auto) 0.1 Sodium 137.0 136.4 135.6 Potassium 2.30 L* 2.63 L* 2.63 L* Chloride 104.0 105.6 107.0 Carbon Dioxide 16.0 L 14.2 L 13.1 L Anion Gap 19.30 19.23 18.13 BUN 23.0 H 22.7 H 21.9 H Creatinine 2.10 H 1.89 H 1.75 H Estimated GFR (MDRD) 31.00 36.00 39.00 BUN/Creatinine Ratio 10.95 12.01 12.51 Glucose 220.0 H 270.7 H D 309.6 H Calcium 7.50 L 7.41 L 7.10 L Magnesium 0.93 L* 0.92 L* Total Bilirubin 0.70 AST 28.0 ALT 22.0 Alkaline Phosphatase 120.0 H Total Protein 7.00 Albumin 3.60 Globulin 3.40 Albumin/Globulin Ratio 1.05 SARS CoV-2 RNA Rapid PEDRO Negative Orders Category Date Time Status BMP [BASIC METABOLIC PANEL] Stat LAB 11/30/23 23:15 Completed BMP [BASIC METABOLIC PANEL] Stat LAB 12/01/23 00:55 Completed CBC W/ AUTO DIFF Stat LAB 11/30/23 20:36 Completed CMP [COMPREHENSIVE METABOLIC PANEL] Stat LAB 11/30/23 20:36 Completed MAGNESIUM Stat LAB 11/30/23 23:15 Completed MAGNESIUM Stat LAB 12/01/23 00:55 Completed SARS COV-2 RNA RAPID PEDRO Stat LAB 11/30/23 20:36 Completed Magnesium Oxide [Mag-Ox] Meds 11/30/23 23:44 Discontinued 800 mg PO ONCE ONE Potassium Chloride [K-Dur] Meds 11/30/23 20:44 Discontinued 40 meq PO ONCE ONE Potassium Chloride in 0.9%NaCl [Sodium Chloride 0.9%- Meds 11/30/23 20:45 Discontinued KCl 40Meq] 1,000 ml IV 250 mls/hr Medications Discontinued Medications Generic Name Dose Route Start Last Admin Trade Name Freq PRN Reason Stop Dose Admin Potassium Chloride/Sodium Chloride 1,000 mls @ 250 mls/hr 11/30/23 20:45 12/01/23 01:12 Sodium Chloride 0.9%-Kcl 40meq IV 12/01/23 00:44 Infused .Q4H ONE Infusion Magnesium Oxide 800 mg 11/30/23 23:44 11/30/23 23:54 Magnesium Oxide 400 Mg Tablet PO 11/30/23 23:45 800 mg ONCE ONE Administration Potassium Chloride 40 meq 11/30/23 20:44 11/30/23 21:12 Potassium Chloride 20 Meq Tab PO 11/30/23 20:45 40 meq ONCE ONE Administration Vital Signs: Temp Pulse Resp BP Pulse Ox 11/30/23 22:25 92 16 151/95 H 100 11/30/23 21:03 92 16 152/93 H 97 11/30/23 20:04 98.1 F 103 H 16 162/106 H 97 Discharge Plan Discharge Patient Disposition: PLACED OBSERVATION Discharge Problem: Hypokalemia Prescriptions: No Action pantoprazole 40 mg tablet,delayed release (DR/EC) See Rx Instructions .ROUTE .COMPLEX Qty: 28 0RF Dose Instruction: TAKE ONE TABLET TWICE DAILY FOR 14 DAYS THEN DECREASE TO ONE TABLET DAILY Rx Instructions: TAKE ONE TABLET TWICE DAILY FOR 14 DAYS THEN DECREASE TO ONE TABLET DAILY triamterene-hydrochlorothiazid 37.5-25 mg capsule 1 cap PO 3 TIMES PER WEEK PRN (Reason: Edema) Qty: 12 3RF Rx Instructions: 3x a week prn carvedilol 6.25 mg tablet See Rx Instructions .ROUTE .COMPLEX Qty: 180 1RF Dose Instruction: TAKE ONE TABLET TWICE DAILY Rx Instructions: TAKE ONE TABLET TWICE DAILY potassium chloride 20 mEq tablet,ER particles/crystals See Rx Instructions .ROUTE .COMPLEX Qty: 90 2RF Dose Instruction: TAKE ONE TABLET THREE TIMES DAILY Rx Instructions: TAKE ONE TABLET THREE TIMES DAILY gabapentin 600 mg tablet 600 mg PO 2XD Qty: 60 2RF dicyclomine 10 mg Capsule 10 mg PO TID PRN (Reason: irritable bowel) tramadol 50 mg tablet 50 mg PO 3XD PRN (Reason: pain) acetaminophen [Tylenol] 325 mg capsule 325 mg PO ONCE PRN (Reason: fever or pain) hydrocodone-acetaminophen 5-325 mg tablet 1 tab PO BID PRN (Reason: pain) Qty: 60 0RF Did you review [place] [employer] for ALL controlled substances?: Not Applicable ED Provider: BRENDA IBRAHIM Condition: Fair Physician Progress Note: We will place an IV, start NS with Dextrose 5% and 40 mEq KCl/L at 250 cc/hr and give K-Dur 40 mEq po here now, we will get a CBC, CMP as well. potassium is up to 2.6, and Mag is critical low as well and Mag+ = 0.93 - we will continue potassium and give Mag 800 mg po here now as well. At this point, patient has been here for some time, and his potassium and magnesium are just slow to correct, so I called Daniel Castro who is on for admissions as STUDENT EDUCATION SPECIALIST, and i will keep on IV NS with dextrose and 40 meq KCl/L at 200 cc/hr, and Mag Ox 800 mg po q 6 hours, and they can check his electrolytes in AM.
[2023-11-30 20:56] LABS: BASOPHILS % (AUTO) 0.2 % (0.0-3.0); EOSINOPHILS % (AUTO) 0.1 % (0.0-7.0); HEMATOCRIT 32.7 % (42.0-52.0); HEMOGLOBIN 11.1 g/dl (14.0-18.0); IMMATURE GRANULOCYTE # (AUTO) 0.1 (0.0-1.0); IMMATURE GRANULOCYTE % (AUTO) 0.9 % (0.0-5.0); LYMPHOCYTES # (AUTO) 0.8 K/uL (0.60-3.4); LYMPHOCYTES % (AUTO) 6.4 (10.0-50.0); MEAN CORPUSCULAR HEMOGLOBIN 29.3 pg (27.0-31.0); MEAN CORPUSCULAR HGB CONC 33.9 (31.8-35.4); MEAN CORPUSCULAR VOLUME 86.3 fl (80.0-94.0); MONOCYTES # (AUTO) 0.9 K/uL (0.4-2.0); MONOCYTES % (AUTO) 7.1 (0-10); NEUTROPHILS # (AUTO) 10.3 K/ul (2.0-6.9); NEUTROPHILS % (AUTO) 85.3 % (42.2-75.2); PLATELET COUNT 321 10^3/uL (140-440); RDW COEFFICIENT OF VARIATION 14.9 % (11.6-14.8); RED BLOOD COUNT 3.79 10^6/ul (4.70-6.10); WHITE BLOOD COUNT 12.05 K/ul (4.2-10.2)
[2023-11-30] MEDS: SODIUM CHLORIDE 0.9%-KCL 40MEQ 1,000 ML IV ONE (21:12)
[2023-11-30] MEDS: K-DUR PO ONE (21:12)
[2023-11-30 21:14] LABS: SARS COV-2 RNA RAPID NAAT NEGATIVE (NEGATIVE)
[2023-11-30 21:15] LABS: ALBUMIN 3.6 g/dL (3.5-5.0); BILIRUBIN,TOTAL 0.7 mg/dL (0.2-1.3); CALCIUM 7.5 mg/dL (8.4-10.2); CREATININE 2.1 mg/dL (0.60-1.10)
[2023-11-30 21:30] LABS: POTASSIUM 2.3 mmol/L (3.5-5.1)
[2023-11-30 23:37] LABS: BLOOD UREA NITROGEN 22.7 mg/dL (9-20); CALCIUM 7.41 mg/dL (8.4-10.2); CARBON DIOXIDE 14.2 mmol/L (22-30.0); CHLORIDE 105.6 mmol/L (98-107); CREATININE 1.89 mg/dL (0.60-1.10); GLUCOSE 270.7 mg/dL (74-106); SODIUM 136.4 mmol/L (134.5-145)
[2023-11-30 23:47] LABS: MAGNESIUM 0.93 mg/dL (1.6-2.3); POTASSIUM 2.63 mmol/L (3.5-5.1)
[2023-11-30] MEDS: MAG-OX PO ONE (23:54)
[2023-12-01 01:10] LABS: BLOOD UREA NITROGEN 21.9 mg/dL (9-20); CALCIUM 7.1 mg/dL (8.4-10.2); CARBON DIOXIDE 13.1 mmol/L (22-30.0); CREATININE 1.75 mg/dL (0.60-1.10); GLUCOSE 309.6 mg/dL (74-106); SODIUM 135.6 mmol/L (134.5-145)
[2023-12-01 01:22] LABS: POTASSIUM 2.63 mmol/L (3.5-5.1)
[2023-12-01 01:23] LABS: MAGNESIUM 0.92 mg/dL (1.6-2.3)
[2023-12-01] MEDS: SODIUM CHLORIDE 1,000 ML IV SCH (02:36)
[2023-12-01] MEDS ORDERED: POTASSIUM CHLORIDE 10 MEQ/100 ML PREMIX 10 MEQ/100 ML BAG IV SCH (03:00)
[2023-12-01] MEDS: SODIUM CHLORIDE 0.9%-KCL 40MEQ 1,000 ML IV ONE (03:25)
[2023-12-01 03:49] VITALS: BMI 26.8
[2023-12-01] MEDS: MAG-OX PO SCH (05:14)
[2023-12-01 06:19] LABS: ALANINE AMINOTRANSFERASE 17.9 U/L (0-50); ALBUMIN 3.27 g/dL (3.5-5.0); ALKALINE PHOSPHATASE 103.6 U/L (56-119); BILIRUBIN,TOTAL 0.54 mg/dL (0.2-1.3); BLOOD UREA NITROGEN 19.3 mg/dL (9-20); CALCIUM 7.32 mg/dL (8.4-10.2); CARBON DIOXIDE 14.9 mmol/L (22-30.0); CHLORIDE 110.5 mmol/L (98-107); CREATININE 1.57 mg/dL (0.60-1.10); GLUCOSE 191.9 mg/dL (74-106); MAGNESIUM 1.03 mg/dL (1.6-2.3); TOTAL PROTEIN 6.35 g/dL (6.3-8.2)
[2023-12-01 06:50] LABS: SODIUM 137.8 mmol/L (134.5-145)
[2023-12-01 06:52] LABS: POTASSIUM 2.7 mmol/L (3.5-5.1)
[2023-12-01] MEDS ORDERED: TYLENOL PO PRN ×2 (08:26→14:15)
[2023-12-01] MEDS ORDERED: NORCO 5-325 PO PRN (08:27)
[2023-12-01] MEDS ORDERED: COREG PO SCH (08:30)
[2023-12-01] MEDS: MAGNESIUM SULF 2 G/50 ML BAG 2 GM/50 ML PIGGYBACK IV ONE (09:05)
[2023-12-01] MEDS: SODIUM CHLORIDE 0.9%-KCL 40MEQ 1,000 ML IV SCH (09:06)
[2023-12-01] MEDS: COREG PO SCH (10:16)
[2023-12-01] MEDS: NEURONTIN PO SCH (10:16)
[2023-12-01] MEDS: PROTONIX PO SCH (10:16)
--- NOTE | 2023-12-01 11:44 | PCM ---
Date of Service Date Seen by Provider: 12/01/23 Time Seen by Provider: 09:00 Admit Day/Time Admission Date: 12/01/23 Admission Time: 02:00 Reason for Admission Chief Complaint: HYPOKALEMIA,HYPOMAGNESEMIA Hospital Provider Hospital Provider: ESTIVEN SWARTZ, [facility] [place] Primary Care Physician Primary Care Physician: CRISPIN RAZO MD History of Present Illness History of Present Illness: 68 yo male with pmh of crohn's diwsease, htn, hld, dm2, and charcot's foot was sent to the ER by PCP for abnormal labs. He was found to have potassium of 2.1. Mag of 0.9. He was given replacement and had mild improvement to 2.6 by almost 1 am. Admitted to med/surg observation for electrolyte replacement. Patient reports he drinks 1 fifth of liquor over the course of 3 days. Denies any chest pain, palpitations, sob, dizziness, or other symptoms. Case Discussed With Case Discussed With: Patient's case was discussed with the ER Physicians, Dr. Barnes. [facility] Medical History History of intestine removal d/t Crohn's Z90.49 - Acquired absence of other specified parts of digestive tract (ICD- 10) Left shoulder pain has had prior surgery by Dr. Mccallum M25.512 - Pain in left shoulder (ICD-10) Pancreatitis with POLLO 08/26 K85.90 - Acute pancreatitis without necrosis or infection, unspecified (ICD- 10) Degenerative joint disease (DJD) of lumbar spine M47.816 - Spondylosis without myelopathy or radiculopathy, lumbar region (ICD-10) DJD (degenerative joint disease) of thoracic spine M47.814 - Spondylosis without myelopathy or radiculopathy, thoracic region (ICD-10) Hx of sepsis Z86.19 - Personal history of other infectious and parasitic diseases (ICD- 10) Surgical History Hx of right knee surgery Z98.890 - Other specified postprocedural states (ICD-10) History of appendectomy Z90.49 - Acquired absence of other specified parts of digestive tract (ICD- 10) History of cholecystectomy Z90.49 - Acquired absence of other specified parts of digestive tract (ICD- 10) S/P foot surgery, left Dr. Mcgregor lacer and tier [place] complete reconstruction 2.5 hour surgery special shoe present Z98.890 - Other specified postprocedural states (ICD-10) Family History Mother Breast cancer FATHER Kidney disease Social History Smoking and tobacco status: Never smoker Alcohol intake: current Alcohol intake frequency: 3 or more drinks per day Alcohol type: beer and hard liquor Substance use type: marijuana Special jeanine needs: No Agree to transfusion: Yes Adopted: No Caregiver/support person: No Foster care: No Household members: none Housing: house Marital status: D Lives independently: Yes Daycare: no daycare Number of children: 1 service: No Current occupational status: retired Pets and animals: Yes History of recent travel: No Do you think of yourself as: straight/heterosexual Current gender identity: male Seatbelt use: sometimes Drives intoxicated or rides with intoxicated courtesy van driver: No Water heater temperature set < 120 degrees: Yes Working smoke detector in home: No Fire extinguisher in home: Yes Carbon monoxide detector in home: No Firearms in home: No Allergies Allergies Allergy/AdvReac Type Severity Reaction Status Date / Time No Known Allergies Allergy Verified 11/30/23 20:11 Current Medications Home Medications dicyclomine 10 mg capsule 10 mg PO TID PRN irritable bowel 10/19/21 [History Confirmed 12/01/23 Last Taken Unknown] acetaminophen 325 mg capsule (Tylenol) 325 mg PO ONCE PRN fever or pain 04/19/22 [History Confirmed 12/01/23 Last Taken Unknown] triamterene 37.5 mg-hydrochlorothiazide 25 mg capsule 1 cap PO 3 TIMES PER WEEK PRN Edema #12 caps 06/15/23 [Rx Confirmed 12/01/23 Last Taken Unknown] carvedilol 6.25 mg tablet See Rx Instructions .Route .COMPLEX #180 tabs 08/02/23 [Rx Confirmed 12/01/23 Last Taken 11/30/23] potassium chloride 20 mEq tablet,extended release(part/cryst) See Rx Instructions .Route .COMPLEX #90 tabs 08/24/23 [Rx Confirmed 12/01/23 Last Taken 11/30/23] gabapentin 600 mg tablet 600 mg PO 2XD #60 tabs 11/27/23 [Rx Confirmed 12/01/23 Last Taken 11/30/23] hydrocodone 5 mg-acetaminophen 325 mg tablet 1 tab PO BID PRN pain #60 tabs 11/30/23 [Rx Confirmed 12/01/23 Last Taken 11/30/23] ibuprofen 125 mg-acetaminophen 250 mg tablet (Dual Action Pain Reliever) 1 tab PO TID PRN Mild to moderate pain 12/01/23 [History Confirmed 12/01/23 Last Taken Unknown] levofloxacin 750 mg tablet 750 mg PO DAILY 12/01/23 [History Confirmed 12/01/23 Last Taken 11/30/23] loperamide 2 mg capsule (Anti-Diarrheal (loperamide)) 6 mg PO Q4H PRN diarrhea 12/01/23 [History Confirmed 12/01/23 Last Taken Unknown] pantoprazole 40 mg tablet,delayed release 40 mg PO QAM 12/01/23 [History Confirmed 12/01/23 Last Taken 11/30/23] tramadol 50 mg tablet 50 mg PO 3XD PRN Moderate Pain 12/01/23 [History Confirmed 12/01/23 Last Taken Unknown] Home Acetaminophen (Acetaminophen 325 Mg Tablet) 650 mg PO Q4H PRN PRN Reason: Mild Pain Acetaminophen (Acetaminophen 325 Mg Tablet) 325 mg PO Q4H PRN PRN Reason: Pain Hydrocodone Bitart/Acetaminophen (Hydrocodone Bit/Acetaminophen 5/325 Mg Tablet) 1 tab PO BID PRN PRN Reason: Pain Carvedilol (Carvedilol 6.25 Mg Tablet) 6.25 mg PO BIDWM2 [facility] Last Admin: 12/01/23 10:16 Dose: 6.25 mg Gabapentin (Gabapentin 300 Mg Capsule) 600 mg PO 2XD [facility] Last Admin: 12/01/23 10:16 Dose: 600 mg Potassium Chloride/Sodium Chloride (Sodium Chloride 0.9%-Kcl 40meq) 1,000 mls @ 100 mls/hr IV .Q10H [facility] Last Admin: 12/01/23 09:06 Dose: 100 mls/hr Levofloxacin (Levofloxacin 500 Mg Tablet) 750 mg PO DAILY [facility] Stop: 12/10/23 11:14 Last Admin: 12/01/23 13:23 Dose: 750 mg Loperamide HCl (Loperamide Hcl 2 Mg Tablet) 2 mg PO AFTER LOOSE STOOLS PRN PRN Reason: Diarrhea Last Admin: 12/01/23 11:58 Dose: 2 mg Pantoprazole Sodium (Pantoprazole Sodium 40 Mg Tablet.Dr) 40 mg PO QDAC2 [facility] Last Admin: 12/01/23 10:16 Dose: 40 mg Potassium Chloride (Potassium Chloride 20 Meq Tab) 80 meq PO ONCE ONE Stop: 12/01/23 16:19 Saccharomyces Boulardii (Saccharomyces Boulardii 250 Mg Capsule) 250 mg PO BID [facility] Last Admin: 12/01/23 13:23 Dose: 250 mg Discontinued Medications Potassium Chloride/Sodium Chloride (Sodium Chloride 0.9%-Kcl 40meq) 1,000 mls @ 250 mls/hr IV .Q4H ONE Stop: 12/01/23 00:44 Last Infusion: 12/01/23 01:12 Dose: Infused Sodium Chloride (Sodium Chloride) 1,000 mls @ 1,000 mls/hr IV Q0H [facility] Last Admin: 12/01/23 02:36 Dose: Not Given Potassium Chloride/Sodium Chloride (Sodium Chloride 0.9%-Kcl 40meq) 1,000 mls @ 250 mls/hr IV BOLUS ONE Stop: 12/01/23 06:31 Last Admin: 12/01/23 03:25 Dose: 250 mls/hr MAGNESIUM SULFATE IN WATER (Magnesium Sulf 2 G/50 Ml Bag) 2 gm in 50 mls @ 25 mls/hr IV ONCE ONE Stop: 12/01/23 10:23 Last Admin: 12/01/23 09:05 Dose: 25 mls/hr Magnesium Oxide (Magnesium Oxide 400 Mg Tablet) 800 mg PO ONCE ONE Stop: 11/30/23 23:45 Last Admin: 11/30/23 23:54 Dose: 800 mg Magnesium Oxide (Magnesium Oxide 400 Mg Tablet) 800 mg PO Q24H [facility] Last Admin: 12/01/23 05:14 Dose: 800 mg Potassium Chloride (Potassium Chloride 20 Meq Tab) 40 meq PO ONCE ONE Stop: 11/30/23 20:45 Last Admin: 11/30/23 21:12 Dose: 40 meq Potassium Chloride (Potassium Chloride 20 Meq Tab) 40 meq PO ONCE ONE Stop: 12/01/23 16:19 Opioid Naive vs. Tolerant Does Patient Take Opioids?: No Is Patient Opioid Naive?: Yes What is Opioid Naive?: *Opioid Naive implies the patient is not already taking opioids or not chronically receiving opioids on a daily basis. *PRN dosing is not "usually" associated with tolerance. *Patients are at higher risk of over-sedation and aspiration. Is Patient Opioid Tolerant?: No What is Opioid Tolerant?: *Opioid Tolerance implies less than the expected response to an opioid. *Acquired tolerance is defined by the patient taking 60mg of oral morphine daily (or equianalgesic dose of another opioid) for 1 week or more. *Often associated with chronic pain. *May take more than usual dose to achieve desired pain control. Review of Systems Constitutional: Reports No symptoms Head: Reports Normocephalic Eyes: Reports No symptoms Ears: Reports No symptoms Nose: Reports No symptoms Mouth: Reports No symptoms Throat: Reports No symptoms Cardiovascular: Reports No symptoms Respiratory: Reports No symptoms Gastrointestinal: Reports No symptoms Genitourinary: Reports No Symptoms Musculoskeletal: Reports No symptoms Endocrine: Reports No symptoms Hematology: Reports No symptoms Immunology: Reports No symptoms Neurological: Reports No symptoms Psychiatric: Reports No symptoms Physical examination Most Recent Vital Signs: Most Recent Vital Signs Temperature 97.8 F 12/01/23 10:00 Temperature Source Temporal Artery Scan 12/01/23 10:00 Temperature Source Temporal Artery Scan 11/30/23 20:04 Pulse Rate 74 12/01/23 10:00 Respiratory Rate 20 12/01/23 10:00 Blood Pressure 149/86 H 12/01/23 10:00 Blood Pressure Mean 107 12/01/23 10:00 Blood Pressure Right Arm 160/96 12/01/23 02:56 Blood Pressure Location Right Arm 12/01/23 10:00 Blood Pressure Position Supine 12/01/23 10:00 O2 Sat by Pulse Oximetry 100 12/01/23 10:00 Oxygen Delivery Method Room Air 12/01/23 11:00 Height 6 ft 1 in 12/01/23 02:56 Weight 92.2 kg 12/01/23 02:56 Telemetry Type Remote Telemetry 12/01/23 07:00 Telemetry Monitoring Continues 12/01/23 07:00 Telemetry Heart Rate 73 12/01/23 07:00 EKG [place] Interval 0.18 12/01/23 07:00 EKG QRS Interval 0.12 H 12/01/23 07:00 Telemetry Strip Reading SR w/ BBB 12/01/23 07:00 Appearance: Positive No Apparent Distress and Alert and Oriented x3 Skin: Positive Warm and Good Turgor HEENT: Positive Normocephalic and PERRLA Neck: Positive Supple and Midline Trachea Chest/Lungs: Positive Symmetrical With Equal Breath Sounds and Good Air Movement all 4 Lung [place] Heart: Positive RRR and Pulses Normal GI/: Positive Soft, Nontender, Bowel Sounds Normal and No Distention Musculoskeletal: Positive Not Examined Extremities: Positive Deformities (Charcot joint to L foot, open wound to medial side of ankle, no drainage, mild erythema), Intact Peripheral Pulses, Stable Joints Without Laxity and Good ROM in All Joints Neurological: Positive Sensation Intact, Motor intact, Alert and Oriented Labs This Visit Labs This Visit: Labs This Visit 11/30/23 11/30/23 12/01/23 20:36 23:15 00:55 WBC 12.05 H RBC 3.79 L Hgb 11.1 L Hct 32.7 L MCV 86.3 MCH 29.3 MCHC 33.9 RDW Coeff of [place] 14.9 H Plt Count 321 Immature Gran % (Auto) 0.9 Neut % (Auto) 85.3 H Lymph % (Auto) 6.4 L Story % (Auto) 7.1 Eos % (Auto) 0.1 Baso % (Auto) 0.2 Neut # (Auto) 10.3 H Lymph # (Auto) 0.8 Story # (Auto) 0.9 Eos # (Auto) 0.0 Baso # (Auto) 0.0 Immature Gran # (Auto) 0.1 Sodium 137.0 136.4 135.6 Potassium 2.30 L* 2.63 L* 2.63 L* Chloride 104.0 105.6 107.0 Carbon Dioxide 16.0 L 14.2 L 13.1 L Anion Gap 19.30 19.23 18.13 BUN 23.0 H 22.7 H 21.9 H Creatinine 2.10 H 1.89 H 1.75 H Estimated GFR (MDRD) 31.00 36.00 39.00 BUN/Creatinine Ratio 10.95 12.01 12.51 Glucose 220.0 H 270.7 H D 309.6 H Calcium 7.50 L 7.41 L 7.10 L Magnesium 0.93 L* 0.92 L* Total Bilirubin 0.70 AST 28.0 ALT 22.0 Alkaline Phosphatase 120.0 H Total Protein 7.00 Albumin 3.60 Globulin 3.40 Albumin/Globulin Ratio 1.05 SARS CoV-2 RNA Rapid PEDRO Negative 12/01/23 05:58 WBC RBC Hgb Hct MCV MCH MCHC RDW Coeff of [place] Plt Count Immature Gran % (Auto) Neut % (Auto) Lymph % (Auto) Story % (Auto) Eos % (Auto) Baso % (Auto) Neut # (Auto) Lymph # (Auto) Story # (Auto) Eos # (Auto) Baso # (Auto) Immature Gran # (Auto) Sodium 137.8 Potassium 2.70 L* Chloride 110.5 H Carbon Dioxide 14.9 L Anion Gap 15.10 BUN 19.3 Creatinine 1.57 H Estimated GFR (MDRD) 44.00 BUN/Creatinine Ratio 12.29 Glucose 191.9 H D Calcium 7.32 L Magnesium 1.03 L Total Bilirubin 0.54 AST 31.0 ALT 17.9 Alkaline Phosphatase 103.6 Total Protein 6.35 Albumin 3.27 L Globulin 3.08 Albumin/Globulin Ratio 1.06 SARS CoV-2 RNA Rapid PEDRO Review Statement Review Statement: I have independently reviewed and interpreted the labs/EKGs/imaging that were ordered by the ER provider. I have reviewed all outside records that are available currently in our EMR including imaging/notes/labs from previous visits. Plan Plan: 1. Severe Hypokalemia - improving, 2.7 this am, NS+KCL 40 mEQ @ 100mL/hr, repeat BMP at 1500, telemetry 2. Hypomagnesemia - improving, 1.0 this am, mag rider given, repeat mag at 1500, telemetry 3. Wound to L foot - previously prescribed levaquin by lacer and tier aldo Buckner nd culture completed and pending 4. Hypertension - chronic, continue home medication DVT Prophylaxis: Ambulation Time Spent: Greater than 80 minutes spent with patient, 50% of the time spent with this patient was devoted to counseling and coordination of care. [facility]annin minutes spent discussing advance care planning. Disposition: Admit to: Med/surg Observation DNI, CPR only Discussed Plan of Care with Dr. Olivia Razo. Medications Medication Orders: Medications Ordered Category Date Time Status Acetaminophen [Tylenol] Meds 12/01/23 08:26 Active 650 mg PO Q4H PRN Carvedilol [Coreg] Meds 12/01/23 09:00 Active 6.25 mg PO BIDWM2 Gabapentin [Neurontin] Meds 12/01/23 09:00 Active 600 mg PO 2XD Hydrocodone Bit/Acetaminophen [[place] 5-325] Meds 12/01/23 08:27 Active 1 tab PO BID PRN Levofloxacin [Levaquin] Meds 12/01/23 11:15 Active 750 mg PO DAILY Pantoprazole Sodium [Protonix] Meds 12/01/23 09:00 Active 40 mg PO QDAC2 Potassium Chloride in 0.9%NaCl [Sodium Chloride 0.9%- Meds 12/01/23 08:30 Active KCl 40Meq] 1,000 ml IV 100 mls/hr
[2023-12-01] MEDS: IMODIUM PO PRN (11:58)
[2023-12-01] MEDS: FLORASTOR PO SCH (13:23)
[2023-12-01] MEDS: LEVAQUIN PO SCH (13:23)
[2023-12-01 14:32] VITALS: BP 124/69; PULSE 66; RESP 18; TEMP 98.1
[2023-12-01 15:55] LABS: CREATININE 1.4 mg/dL (0.60-1.10); MAGNESIUM 1.4 mg/dL (1.6-2.3); POTASSIUM 2.7 mmol/L (3.5-5.1)
--- NOTE | 2023-12-01 16:22 | DCSUM ---
Admission Date Admission Date: 12/01/23 Discharge Date Discharge Date: 12/01/23 Admission Diagnosis Admission Diagnosis: 1. Severe Hypokalemia 2. Hypomagnesemia 3. Wound to L foot 4. Hypertension Discharge Diagnosis Discharge Diagnosis: 1. Severe Hypokalemia - 2.7 upon AMA 2. Hypomagnesemia - 1.4 upon AMA 3. Wound to L foot - previously prescribed levaquin by product ambassador Dr. Mcgregor, wound culture completed and pending 4. Hypertension - chronic, stable Hospital Provider Hospital Provider: ESTIVEN SWARTZ, [facility] [place] Primary Care Physician Primary Care Physician: CRISPIN HICKEY MD Summary of History and Physical Summary of History and Physical: 68 yo male with pmh of crohn's diwsease, htn, hld, dm2, and charcot's foot was sent to the ER by PCP for abnormal labs. He was found to have potassium of 2.1. Mag of 0.9. He was given replacement and had mild improvement to 2.6 by almost 1 am. Admitted to med/surg observation for electrolyte replacement. Patient reports he drinks 1 fifth of liquor over the course of 3 days. Denies any chest pain, palpitations, sob, dizziness, or other symptoms. Hospital Course Subjective: Received multiple doses of replacement and ER and overnight. Started on NS with 40 mEq KCL this am. Repeat labs this afternoon showed potassium of 2.7. Orders for oral 80 mEq given. Patient reported to nursing staff that he was not staying overnight and that he wished to be discharged. Attempted to leave AMA earlier today and this provider had extensive discussion with patient about importance of replacing potassium and magnesium. Patient was agreeable to stay further at that time. After afternoon labs patient reports he was not staying overnight. Risks explained of leaving. Patient takes potassium at home. Encouraged to continue taking. Follow-up with PCP next week. Magnesium initially was 0.9 and increased to 1.4 with replacement. No changes to home medications. Appearance: No Apparent Distress, Alert and Ill-appearing HEENT: MMM, Supple and No JVD CVS: No Murmur Abdomen: Soft, Non-Tender and No Distention Respiratory: No Dyspnea Vital Signs: Most Recent Vital Signs Temperature 98.1 F 12/01/23 14:00 Temperature Source Temporal Artery Scan 12/01/23 14:00 Temperature Source Temporal Artery Scan 11/30/23 20:04 Pulse Rate 66 12/01/23 14:00 Respiratory Rate 18 12/01/23 14:00 Blood Pressure 124/69 12/01/23 14:00 Blood Pressure Mean 87 12/01/23 14:00 Blood Pressure Right Arm 160/96 12/01/23 02:56 Blood Pressure Location Left Arm 12/01/23 14:00 Blood Pressure Position Supine 12/01/23 14:00 O2 Sat by Pulse Oximetry 98 12/01/23 14:00 Oxygen Delivery Method Room Air 12/01/23 15:00 Height 6 ft 1 in 12/01/23 02:56 Weight 92.2 kg 12/01/23 02:56 Telemetry Type Remote Telemetry 12/01/23 13:00 Telemetry Monitoring Continues 12/01/23 13:00 Telemetry Heart Rate 70 12/01/23 13:00 EKG [place] Interval 0.20 12/01/23 13:00 EKG QRS Interval 0.12 H 12/01/23 13:00 Telemetry Strip Reading SR w/ BBB 12/01/23 13:00 Lab Results Last 24 Hours: 12/01/23 12/01/23 12/01/23 14:59 05:58 00:55 WBC RBC Hgb Hct MCV MCH MCHC RDW Coeff of [place] Plt Count Immature Gran % (Auto) Neut % (Auto) Lymph % (Auto) [place] % (Auto) Eos % (Auto) Baso % (Auto) Neut # (Auto) Lymph # (Auto) [place] # (Auto) Eos # (Auto) Baso # (Auto) Immature Gran # (Auto) Sodium 138.0 137.8 135.6 Potassium 2.70 L* 2.70 L* 2.63 L* Chloride 110.0 H 110.5 H 107.0 Carbon Dioxide 17.0 L 14.9 L 13.1 L Anion Gap 13.70 15.10 18.13 BUN 16.0 19.3 21.9 H Creatinine 1.40 H 1.57 H 1.75 H Estimated GFR (MDRD) 50.00 44.00 39.00 BUN/Creatinine Ratio 11.42 12.29 12.51 Glucose 220.0 H 191.9 H D 309.6 H Calcium 7.00 L 7.32 L 7.10 L Magnesium 1.40 L 1.03 L 0.92 L* Total Bilirubin 0.54 AST 31.0 ALT 17.9 Alkaline Phosphatase 103.6 Total Protein 6.35 Albumin 3.27 L Globulin 3.08 Albumin/Globulin Ratio 1.06 SARS CoV-2 RNA Rapid PEDRO 11/30/23 11/30/23 23:15 20:36 WBC 12.05 H RBC 3.79 L Hgb 11.1 L Hct 32.7 L MCV 86.3 MCH 29.3 MCHC 33.9 RDW Coeff of [place] 14.9 H Plt Count 321 Immature Gran % (Auto) 0.9 Neut % (Auto) 85.3 H Lymph % (Auto) 6.4 L [place] % (Auto) 7.1 Eos % (Auto) 0.1 Baso % (Auto) 0.2 Neut # (Auto) 10.3 H Lymph # (Auto) 0.8 [place] # (Auto) 0.9 Eos # (Auto) 0.0 Baso # (Auto) 0.0 Immature Gran # (Auto) 0.1 Sodium 136.4 137.0 Potassium 2.63 L* 2.30 L* Chloride 105.6 104.0 Carbon Dioxide 14.2 L 16.0 L Anion Gap 19.23 19.30 BUN 22.7 H 23.0 H Creatinine 1.89 H 2.10 H Estimated GFR (MDRD) 36.00 31.00 BUN/Creatinine Ratio 12.01 10.95 Glucose 270.7 H D 220.0 H Calcium 7.41 L 7.50 L Magnesium 0.93 L* Total Bilirubin 0.70 AST 28.0 ALT 22.0 Alkaline Phosphatase 120.0 H Total Protein 7.00 Albumin 3.60 Globulin 3.40 Albumin/Globulin Ratio 1.05 SARS CoV-2 RNA Rapid PEDRO Negative Discharge Instructions Discharge Planning: Discharge Planning > 40 minutes If patient is discharged with left ventricular systolic dysfunction: NA Discharged with a beta dorota? [] If no, why not? [] Discharged with an zarina/arb? [] If no, why not? [] DIAGNOSIS: HYPOKALEMIA, HYPOMAGNESEMIA DIET: DIABETIC ACTIVITY: TOLERATED FOLLOW-UP WITH PCP MONDAY DISCUSSED RISKS OF LEAVING AND BENEFITS OF STAYING. PATIENT SIGNED OUT AMA. Discharge Medications: Medications at Discharge (Home Meds & RX) dicyclomine 10 mg capsule 10 mg PO TID PRN irritable bowel 10/19/21 acetaminophen 325 mg capsule (Tylenol) 325 mg PO ONCE PRN fever or pain 04/19/22 triamterene 37.5 mg-hydrochlorothiazide 25 mg capsule 1 cap PO 3 TIMES PER WEEK PRN Edema #12 caps 06/15/23 carvedilol 6.25 mg tablet See Rx Instructions .Route .COMPLEX #180 tabs 08/02/23 potassium chloride 20 mEq tablet,extended release(part/cryst) See Rx Instructions .Route .COMPLEX #90 tabs 08/24/23 gabapentin 600 mg tablet 600 mg PO 2XD #60 tabs 11/27/23 hydrocodone 5 mg-acetaminophen 325 mg tablet 1 tab PO BID PRN pain #60 tabs 11/30/23 ibuprofen 125 mg-acetaminophen 250 mg tablet (Dual Action Pain Reliever) 1 tab PO TID PRN Mild to moderate pain 12/01/23 levofloxacin 750 mg tablet 750 mg PO DAILY 12/01/23 loperamide 2 mg capsule (Anti-Diarrheal (loperamide)) 6 mg PO Q4H PRN diarrhea 12/01/23 pantoprazole 40 mg tablet,delayed release 40 mg PO QAM 12/01/23 tramadol 50 mg tablet 50 mg PO 3XD PRN Moderate Pain 12/01/23 Discharge Plan Discharge Discharge Orders: Discharge Patient (ONCE); Ordered 12/01/23 Ordered By: ASIA HUERTAS Activity Restrictions/Additional Instructions: DUE TO DR. HICKEY'S OFFICE BEING CLOSED ON AND THE WEEKEND WE WERE UNABLE TO MAKE A HOSPITAL FOLLOW UP APPOINTMENT FOR YOU. PLEASE CONTACT THEIR OFFICE TO SCHEDULE AN APPOINTMENT. [phone] Instructions: Hypokalemia (GEN), Alcohol Use Disorder (GEN) Patient Disposition: AMA Prescriptions: Continued triamterene-hydrochlorothiazid 37.5-25 mg capsule 1 cap PO 3 TIMES PER WEEK PRN (Reason: Edema) Qty: 12 3RF Rx Instructions: 3x a week prn carvedilol 6.25 mg tablet See Rx Instructions .ROUTE .COMPLEX Qty: 180 1RF Dose Instruction: TAKE ONE TABLET TWICE DAILY Rx Instructions: TAKE ONE TABLET TWICE DAILY potassium chloride 20 mEq tablet,ER particles/crystals See Rx Instructions .ROUTE .COMPLEX Qty: 90 2RF Dose Instruction: TAKE ONE TABLET THREE TIMES DAILY Rx Instructions: TAKE ONE TABLET THREE TIMES DAILY gabapentin 600 mg tablet 600 mg PO 2XD Qty: 60 2RF dicyclomine 10 mg Capsule 10 mg PO TID PRN (Reason: irritable bowel) levofloxacin 750 mg tablet 750 mg PO DAILY pantoprazole 40 mg tablet,delayed release (DR/EC) 40 mg PO QAM loperamide [Anti-Diarrheal (loperamide)] 2 mg capsule 6 mg PO Q4H PRN (Reason: diarrhea) Rx Instructions: administer after each loose stool until symptoms controlled; do not exceed 8 mg per 24 hrs tramadol 50 mg tablet 50 mg PO 3XD PRN (Reason: Moderate Pain) ibuprofen-acetaminophen [Dual Action Pain Reliever] 125-250 mg tablet 1 tab PO TID PRN (Reason: Mild to moderate pain) acetaminophen [Tylenol] 325 mg capsule 325 mg PO ONCE PRN (Reason: fever or pain) hydrocodone-acetaminophen 5-325 mg tablet 1 tab PO BID PRN (Reason: pain) Qty: 60 0RF Did you review [place] ROOFER HELPER for ALL controlled substances?: No Discussed opioids are addictive and Narcan is available by prescription or from pharmacy.: No Condition: Poor Referrals: CRISPIN HICKEY MD [Primary Care Provider] - 5-7 Days (PLEASE CALL AND SCHEDULE. WE WERE UNABLE TO MAKE THIS APPOINTMENT FOR YOU THEIR CLINIC IS CLOSED ON FRIDAYS AND THE WEEKEND. )
[2023-12-01] MEDS: K-DUR PO ONE ×2 (16:45)
== END 2023-12-01 17:30 | disposition left against medical advice (07) ==
LOC: ED 19:49 → MEDSURG B 19:49
PROVIDERS: ADMIT Hospitalist; ATTEND Nurse Practitioner Family